=== PATIENT | female | born 1945 | race Caucasian/White ===

== ENCOUNTER 2025-04-29 15:24 | Emergency (ER) | payer OTHER, SELFPAY ==
--- OUTSIDE RECORDS SUMMARY | 2025-04-05 12:00 | XMS_ITS | Encounter Summary ---
Author Organization [facility] Healthcare Address [address] [place] [address] Care Team Providers Care Emergency Medicine Physician Name Role Phone Emily Blair MD Primary Care Provider + [phone] Billy Ward MD Unavailable [phone] Hugo Chavez OD Unavailable Sahil Yuan MD Unavailable [phone] Vivi Chaidez MD Unavailable Edgard Ray MD Unavailable [phone] Osito Garcia MD Unavailable [phone] Aye Bond MD Unavailable Reason for Visit * Reason Comments Annual Exam Encounter Details Date Type Department Care Team (Late st Contact Info) Description 04/05/2025 1:00 PM CDT Office Visit [facility] [address] [place] [address] Emily Blair MD [address] [id number] Annual physical exam (Primary Dx); Class 1 obesity with alveolar hypoventilation, serious comorbidity, and body mass index (BMI) of 33.0 to 33.9 in adult (HCC); Obstructive sleep apnea syndrome; Type 2 diabetes mellitus with hyperlipidemia (HCC); Benign hypertension; Multiple-type hyperlipidemia; Sick sinus syndrome (HCC); Iron deficiency anemia due to chronic blood loss; Chronic GERD; GAVE (gastric antral vascular ectasia); Mixed obsessional thoughts and acts; Dry mouth; Vitamin D deficiency; Immunization counseling; Hyponatremia Social History Tobacco Use Types Packs/Day Years Used Date Smoking Tobacco: Never Smokeless Tobacco: Never Alcohol Use Standard Drinks/Week Comments Yes 0 (1 standard drink = 0.6 oz pur e alcohol) PHQ-2 Answer Date Recorded PHQ-2 Total Score (If total score is 3 or more points, staff should administer the PHQ-9) 0 04/05/2025 AUDIT-C Answer Date Recorded Q1: How often do you have a drink containing alc ohol? Monthly or less 04/05/2025 Q2: How many drinks containi ng alcohol do you have on a typical day when you are drinking? 1 or 2 04/05/2025 Q3: How often do you have si x or more drinks on one occasion? Never 04/05/2025 Personal Safety Answer Date Recorded Have you ever been in or are you currently in a harmful physical or emotional relationship or is someone making you feel afraid or unsafe? Denies 06/09/2024 Comments No Sex and Gender Information Value Date Recorded Sex Assigned at Not on file Legal Sex Female 11:46 AM [employer] Gender Identity Not on file Sexual Orientation Not on file Occupation Industry Job Start Date Job End Date retired Not on file Not on file Not on file documented as of this encounter Last Filed Vital Signs Vital Sign Reading Time Taken Comments Blood Pressure 122/58 04/05/2025 1:08 PM CDT Pulse 63 04/05/2025 1:08 PM CDT Temperature 36.4 C (97.5 F) 04/05/2025 1:08 PM CDT Respiratory Rate 16 04/05/2025 1:08 PM CDT Oxygen Saturation 98% 04/05/2025 1:08 PM CDT Inhaled Oxygen Concentration - - Weight 84.3 kg (185 lb 12.8 oz) 04/05/2025 1:08 PM CDT Height 157.5 cm (5' 2) 04/05/2025 1:08 PM CDT Body Mass Index 33.98 04/05/2025 1:08 PM CDT documented in this encounter Functional Status * Question Answer Date of Assessment Author One or more falls in the las t year 0 04/05/2025 1:00 PM CDT Jimena Rodriguez MA * BP Location Answer Date of Assessment Author Left arm 04/05/2025 1:08 PM CDT Jimena Rodriguez MA * AUDIT-C Score Answer Date of Assessment Author 1 04/05/2025 1:44 PM CDT Emily Blair MD * Alcohol Use Question Answer Date of Assessment Author Q1: How often do you have a drink containing alcohol? Monthly or less 04/05/2025 1:44 PM CDT Emily Blair MD Q2: How many drinks containing alcohol do you have on a typical day when you are drinking? 1 or 2 04/05/2025 1:44 PM CDT Raymond Blair MD Q3: How often do you have six or more drinks on one occasion? Never 04/05/2025 1:44 PM CDT Emily Blair MD * BP Location Answer Date of Assessment Author Left arm 04/05/2025 1:08 PM CDT Jimena Rodriguez MA documented as of this encounter Patient Instructions * Patient Instructions* Emily Blair MD - 04/05/2025 1:00 PM CDT ORDERS RELATED TO CARE PROVIDED TODAY 1. Labs after April 22 = basic panel, urine sodium = hyponatremia, medication monitor , vitamin-D level = vitamin-D deficiency 2. Diabetic labs with a fasting lipid panel not LDL = diabetes, for the six- month follow up CBC and iron profile = chronic blood loss anemia for the six-month follow up Return in about 6 months (around 10/04/2025) for Recheck. Lifestyle Recommendations Increase Physical Activity, Reduce Weight, and Improve Diet Medication adjustments: Decrease the triamterene HCTZ to [id number] dosing because the sodium in his little low Returned to the office in 2 weeks to update labs to check on this sodium with a medication change Care Team Providers: Contact my office with updates if you do not find 1 of your providers on this list Patient Care Team: Emily Blair MD as PCP - General BannerBilly MD as Surgeon (Orthopedic Surgery) Hugo Chavez OD (Optometry) Sahil Yuan MD as Consulting Physician (Urology) Vivi Chaidez MD as Consulting Physician (Rheumatology) Edgard Ray MD as Referring Physician (Obstetrics and Gynecology) Osito Garcia MD as Consulting Physician (Gastroenterology) Aye Bond MD as Consulting Physician (Sleep Medicine) Cut this here to put in the refrigerator Cynthia Santiago Blanca IMMUNIZATION RECOMMENDATIONS COVID vaccination recommended every january before the kids go back to school Cynthia Santiago Blanca immunization record as of 04/05/25 Immunization History Administered Date(s) Administered Influenza, Quadrivalent, High Dose, Preservative Free, Intrr 04/26/2020, 05/08/2021, 04/08/2022, 03/27/2023 Influenza, Quadrivalent, Split, Intramuscular 03/26/2019 Influenza, Trivalent, High Dose, Split, Preservative Free, Intramuscular 04/09/2015, 04/08/2016, 04/23/2017, 04/07/2018, 03/26/2019, 04/06/2024, 04/05/2025 Influenza, Trivalent, IM (MDV) 2015 Influenza, Unspecified 04/08/2016 Moderna SARS-CoV-2 Monovalent Vaccination (12+ YRS) 08/02/2020, 09/10/2020, 04/26/2021 Pneumococcal Conjugate PCV 13 05/22/2015 Pneumococcal Conjugate Pcv20 03/27/2023 Pneumococcal Polysaccharide PPV23 03/11/2013 RSV Vaccine, Pref, Recombinant, Subunit, Adjuvanted, PF, IM (Arexvy) 08/11/2023 Tdap 05/21/2011, 06/22/2016 ZOSTER LIVE 11/19/2007 ZOSTER Recombinant 09/22/2018, 02/08/2019 ----------------------------> To keep up with emerging viruses and COVID science evidence I recommend the podcast TWIV episodes posted every Thursday are with Dr. Delfino Desai and talk about emerging virus science PLANNING FOR possible INFLUENZA INFECTION or COVID INFECTION In advance of illness I recommended Purchase COMBINATION COVID plus INFLUENZA TEST KIT for day # 1 testing AND Purchase COVID TEST KIT for day # 4 testing. Be certain that you have been immunized, full immunization for COVID = 3 total COVID shots Testing and evaluation for COVID if you get a cold = runny nose plus sore throat could be COVID -day 0 = Onset of symptoms = sore throat, runny nose, cough -day 1. = perform a Nasal COVID and influenza test on the morning of day 1 and if POSITIVE call theoffice for medication- [ available ] -if negative test again in 48 hours= on day 4 -day 2. And 3 No testing is done on day 2 or 3 -day 4 = perform a Nasal COVID test on morning of day 4 and if POSITIVE call the office for medication- [ available ] , if negative no further testing as needed. there are medication treatments for COVID Paxlovid is the highly effective antiviral used to treat COVID most patients can use this medicine. If you have chronic kidney disease there are limited options for treatment. We would plan remdesivir infusion daily for 3 days or less effective MOLNUPIRAVIR 800 MG BID X 5D pills should you become ill with COVID-19. This will require transportation to [facility] daily for 3 days to complete your course ofcare PLANNING FOR possible INFLUENZA INFECTIONS Take your yearly flu shot in March, [ We take the flu shot to prevent dying from Influenza = the flu. ] Influenza causes fever and muscle aches. If you have these symptoms you will need to go to the Office or a quick care clinic for testing Antiviral therapy = Tamiflu= is available but needs to be started within the 1st 24-72 hours of symptoms. Please be evaluated immediately if you have these symptoms. For further INTERNET RESEARCH on your MEDICAL CONCERNS: I recommend = [email or web address],NIH.[email or web address] = the [employer] library of medicine online This is a consistently reliable site for your personal medical research. documented in this encounter Ordered Prescriptions Prescription Sig Dispense Quantity Refills Last Filled Start Date End Date triamterene-hydroCHL OROthiazide 37.5-25 mg per tablet/capsuleIndica tions:Benign hypertension Take 1 tablet/capsule by mouth every other day 45 tablet/capsul e 3 04/05/2025 tirzepatide (MOUNJARO) 2.5 mg/0.5 mL pen injector injectionIndications :Type 2 diabetes mellitus with hyperlipidemia (HCC) Inject 0.5 mL (2.5 mg total) under the skin once a week 6 mL 2 04/05/2025 sertraline (ZOLOFT) 100 mg tabletIndications:Mi xed obsessional thoughts and acts Take 1 tablet (100 mg total) by mouth nightly 90 tablet 3 04/05/2025 rosuvastatin (CRESTOR) 20 mg tabletIndications:Mu ltiple-type hyperlipidemia Take 1 tablet (20 mg total) by mouth nightly 90 tablet 3 04/05/2025 omeprazole (PriLOSEC) 20 mg capsuleIndications:G I Bleed Take 1 capsule (20 mg total) by mouth daily before breakfast 90 capsule 3 04/05/2025 metoprolol XL (TOPROL-XL) 50 mg extended release tabletIndications:Si ck sinus syndrome (HCC),Benign hypertension Take 1 tablet (50 mg total) by mouth daily before breakfast 90 tablet 3 04/05/2025 documented in this encounter Progress Notes * Emily Blair MD - 04/05/2025 1:00 PM CDT Images from the original note were not included. This patient has verbally consented to recording this visit in order to utilize AI technology in generating this note. Cynthia Blanca is a 80 y.o. year old White Non- female here an for Annual Wellness Visit. History of Present Illness Cynthia Blanca is a 80 year old female with type 2 diabetes and hypertension who presents for a routine follow-up visit. Physical activity and exercise - Difficulty incorporating regular exercise into routine despite having a recumbent bicycle at home - Remains active through walking and shopping but lacks structured exercise - Considering relocating the bicycle to a more accessible location to facilitate regular use Hyponatremia and electrolyte disturbance - History of hyponatremia with sodium level of 131 mEq/L - Potential association with triamterene and hydrochlorothiazide use - Concern about sodium levels and possible kidney involvement due to history of Sjogren's syndrome Sicca symptoms - Experiences dry mouth and dry eyes - Attributes symptoms to aging rather than Sjogren's syndrome - Recent tests do not show significant antibody presence Gastrointestinal bleeding and anemia - 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 - Currently taking metronidazole, purchased over the counter due to insurance issues - Takes iron daily, contrary to previous recommendation of three times a week, as she feels better with daily intake - Takes vitamin C to aid iron absorption Vitamin d and calcium supplementation - Takes vitamin D 50,000 IU weekly - Concerned about vitamin D levels in relation to calcium levels Diverticular disease and colorectal cancer screening - History of diverticular disease - Previous colonoscopy and endoscopy performed - No family history of colon cancer - No history of polyps Obsessive-compulsive disorder - Takes sertraline (Zoloft) for obsessive-compulsive disorder - Significant improvement in symptoms over the years Vaccination status - Received shingles, tetanus, RSV, and influenza vaccinations - Hesitant about further COVID-19 vaccinations Pruritus and vaginal dryness - History of itching and dryness - Uses estrogen cream occasionally for symptoms Urinary tract and yeast infections - History of bladder infection, prescribed Diflucan and an antibiotic (uncertain if antibiotic was taken) - Uses cream for yeast infections as needed Substance use and sexual activity - Not currently smoking, using nicotine vape, cocaine, amphetamines, or marijuana - Not sexually active - Consumes alcohol socially, but infrequently due to stomach concerns Medicare Health Risk Assessment Basic Information In general, would you say your health is: Good Do you have an advance directive, such as a living will or durable power of regulatory attorney?: Yes Do you have to strain or struggle to hear/understand conversations?: (!) Yes Over the last 2 weeks, how often have you been bothered by any of the following problems? Little Interest or Pleasure in Doing Things: 0-Not at all Feeling Down, Depressed, or Hopeless: 0-Not at all PHQ-2 Total Score (If total score is 3 or more points, staff should administer the PHQ-9): 0 In the past year, patient experienced: One or more falls in the last year: No Do you feel unsteady when standing or walking?: No Do you worry about falling?: No Safety Do you have a working smoke detector in your home?: Yes Does your home have throw rugs, poor lighting, or a slippery bath tub/shower?: (!) Yes Do you always fasten your seatbelt when you are in a vehicle?: Yes What is your typical mode of transportation: Car Physical Activity How many days a week do you usually exercise?: 0 - I do not exercise How intense is your typical exercise?: I am currently not exercising Nutrition How would you rate your appetite?: Good How would you describe the condition of your mouth and teeth/dentures?: Good On a typical day, how many servings of fruits and vegetables do you eat?: 3 On a typical day, how many servings of high fiber/whole-grain foods do you eat?: 3 On a typical day, how many servings of high fat/fried foods do you eat?: 0 Have you experienced any of the following problems currently or recently? Eating: No Grooming: No Bathing: No Walking: No Using the toilet: No Memory problems: No Difficulty speaking: No Dressing: No Balance: No Pain: No Sexual Health: No Fatigue: No Depression: No Life Satisfaction: No Stress: No Anger: No Loneliness or Social Isolation: No Suicide: No Have you experienced any of the following problems currently or recently? Laundry and/or housekeeping: No Handling money: No Shopping: No Using the Phone: No Food preparation: No Transportation: No Taking and/or getting your own medications: No Do you use prescription drugs that are not prescribed for you?: No Based on my observation of the patient, review of Health Risk Assessment (HRA) and other records, this is my assessment and recommendation regarding fall risk, hearing impairment, home safety, ADLs, or any other issues identified in the HRA: No concerns expressed Problem List, Past Medical and Surgical History: Patient Active Problem List Diagnosis Genital herpes simplex Obstructive sleep apnea syndrome Obsessive-compulsive disorder Chronic GERD Multiple-type hyperlipidemia Class 1 obesity with serious comorbidity and body mass index (BMI) of 33.0 to 33.9 in adult History of total hip arthroplasty, right Irritable bowel syndrome with constipation Osteopenia, senile Atypical squamous cells of undetermined significance on cytologic smear of cervix (ASC-US) Iron deficiency anemia due to chronic blood loss GAVE (gastric antral vascular ectasia) Benign hypertension Sick sinus syndrome (HCC) Atherosclerosis of aorta Elevated antinuclear antibody (JANNIE) level 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, without long-term current use of insulin Sjogren's syndrome Past Medical History: Diagnosis Date Abnormal Pap smear of cervix 1992 atypical endocervical cells Anxiety and depression Chest wall pain Diverticulosis Dizziness Genital herpes GERD (gastroesophageal reflux disease) 2 para 2 History of Randolph's palsy 2014 Hyperlipemia Hyperlipidemia Hypertension Menopause Mitral valve prolapse OCD (obsessive compulsive disorder) OCD (obsessive compulsive disorder) CHRIS (obstructive sleep apnea) Osteoarthritis Osteoporosis Prediabetes 11/05/2013 Fasting hyperglycemia Sarcoidosis Past Surgical History: Procedure Laterality Date BIOPSY 1972 vocal cord nodule CARPAL TUNNEL RELEASE 2002 and trigger thumb CERVICAL CONE BIOPSY 1992 atypical endocervical cells: benign pathology CHOLECYSTECTOMY 2006 COLONOSCOPY 01/09/2015 Dr. Mcclendon at [facility] [place] (-) diverticulosis found COLONOSCOPY 2014 COLONOSCOPY 12/26/2020 (-) Dr. Castaneda, only diverticulosis found DUPUYTREN CONTRACTURE RELEASE 2004 ESOPHAGOSCOPY / EGD 08/02/2007 On (-) Dr. Beth ESOPHAGOSCOPY / EGD 12/26/2020 (+) Dr. Csataneda, angiodysplasia of the stomach no active bleeding ESOPHAGOSCOPY / EGD 05/22/2021 (+) Dr. 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 Garcia angiodysplasia stomach treated with argon laser FL FLUORO GUIDED INJECTION HIP LEFT Left 06/08/2017 FL FLUORO GUIDED INJECTION HIP LEFT Left 11/18/2017 FL FLUORO GUIDED INJECTION HIP LEFT Left 03/05/2018 FL FLUORO GUIDED INJECTION HIP LEFT Left 09/08/2018 JOINT REPLACEMENT KNEE ARTHROSCOPY Bilateral TOTAL HIP ARTHROPLASTY 2016 TOTAL HIP ARTHROPLASTY Left 12/15/2018 Family History: Family History Problem Relation Age of Onset Skin cancer Mother Hypertension Mother Heart failure Mother COD at age 96 COPD Mother Diabetes Maternal Grandmother Stroke Maternal Grandmother Diabetes Paternal Grandmother Stomach cancer Mother's Sister Diabetes Father Heart attack Father COD at age 45 Diabetes Brother Kidney failure Brother COD Heart attack Brother Skin cancer Son Social History: Social History Tobacco Use Smoking status: Never Smokeless tobacco: Never Substance and Sexual Activity Drug use: No Sexual activity: Not Currently Partners: Male control/protection: Post-menopausal Alcohol Use: Not At Risk (04/05/2025) AUDIT-C Frequency of Alcohol Consumption: Monthly or less Average Number of Drinks: 1 or 2 Frequency of Binge Drinking: Never Depression Screen: PHQ Screening Over the past 2 weeks, how often have you been bothered by any of the following problems? Little Interest or Pleasure in Doing Things: 0-Not at all Feeling Down, Depressed, or Hopeless: 0-Not at all PHQ-2 Total Score (If total score is 3 or more points, staff should administer the PHQ-9): 0 Care Team Providers: Patient Care Team: Emily Blair MD as PCP - General BannerBilly MD as Surgeon (Orthopedic Surgery) Hugo Chavez OD (Optometry) Sahil Yuan MD as Consulting Physician (Urology) Vivi Chaidez MD as Consulting Physician (Rheumatology) Edgard Ray MD as Referring Physician (Obstetrics and Gynecology) Osito Garcia MD as Consulting Physician (Gastroenterology) Aye Bond MD as Consulting Physician (Sleep Medicine) Primary Pharmacy/DME suppliers: [facility] [id number] [place] [id number] I reviewed the patient???s home and community safety, including driving, and made the following recommendations no concerns no need for restrictions. Detection of Cognitive Impairment: The patient does not have cognitive impairment based on direct observation, discussion with patientor family, or review of medical records. Health Maintenance: Health Maintenance Topics with due status: Overdue Topic Date Due Dilated Eye Exam Never done Covid-19 Vaccine 02/20/2025 Health Maintenance Topics with due status: Not Due Topic Last Completion Date DTaP/Tdap/Td Vaccine 06/22/2016 Lipid Panel 08/11/2024 Foot Exam 08/16/2024 Osteoporosis Screening-Bone Density Scan 10/19/2024 Albumin Creatinine Ratio, Urine 03/30/2025 Hemoglobin A1C 03/30/2025 eGFR 03/30/2025 Fall Risk Assessment 04/05/2025 Depression Screening 04/05/2025 Well Visit 65+ 04/05/2025 Health Maintenance Topics with due status: Completed Topic Last Completion Date Hepatitis C Screening 02/01/2019 Zoster Vaccine 02/08/2019 Pneumococcal vaccine 65+ 03/27/2023 Hepatitis B Screening 02/18/2024 Influenza Vaccine 04/05/2025 Health Maintenance Topics with due status: Discontinued Topic Date Due Colorectal Cancer Screening Discontinued Breast Cancer Screening-Mammogram Discontinued Counseling and Referral of Preventative Services: Lifestyle Recommendations outlined on the after visit summary Advanced Directive Durable Power of Field Observer: Yes Living Will: Undo Assessment and Plan: Counseling and Referrals to Preventative Services: Based on the USPSTF Recommendations HEALTH MAINTENANCE: Health Maintenance Topics with due status: Overdue Topic Date Due Dilated Eye Exam Never done Covid-19 Vaccine 02/20/2025 Health Maintenance Topics with due status: Not Due Topic Last Completion Date DTaP/Tdap/Td Vaccine 06/22/2016 Lipid Panel 08/11/2024 Foot Exam 08/16/2024 Osteoporosis Screening-Bone Density Scan 10/19/2024 Albumin Creatinine Ratio, Urine 03/30/2025 Hemoglobin A1C 03/30/2025 eGFR 03/30/2025 Fall Risk Assessment 04/05/2025 Depression Screening 04/05/2025 Well Visit 65+ 04/05/2025 Health Maintenance Topics with due status: Completed Topic Last Completion Date Hepatitis C Screening 02/01/2019 Zoster Vaccine 02/08/2019 Pneumococcal vaccine 65+ 03/27/2023 Hepatitis B Screening 02/18/2024 Influenza Vaccine 04/05/2025 Health Maintenance Topics with due status: Discontinued Topic Date Due Colorectal Cancer Screening Discontinued Breast Cancer Screening-Mammogram Discontinued COLON CANCER SCREENING due next last testing = [address] Castaneda next testing due = complete EYE DOCTOR : Current eye doctor is Dr. jayla yeh, I recommend follow up visits every visitingyearly for dilated eye exam for diabetes DENTIST : Current dentist is Dr. Yo, I recommend a follow up visit every six-month minimum for cleaning every six-month. Scheduled next week and attends every six-month MAMMOGRAM was last done 04/05/2025, next mammogram is due RESULT IS PENDING WE WILL DECIDE AFTER THE RESULTS DEXA was last done October 19, 2024 you did already of the mammogram that you just have today, next DEXA is due October 20, 2026 Hepatitis-B screening (-) date = Hepatitis B Screening 02/18/2024 Hepatitis screening is completed Hepatitis-C screening (-) date = Hepatitis C Screening 02/01/2019 IMMUNIZATION RECOMMENDATIONS COVID vaccination recommended every january before the kids go back to school Immunization History Administered Date(s) Administered Influenza, Quadrivalent, High Dose, Preservative Free, Intrr 04/26/2020, 05/08/2021, 04/08/2022, 03/27/2023 Influenza, Quadrivalent, Split, Intramuscular 03/26/2019 Influenza, Trivalent, High Dose, Split, Preservative Free, Intramuscular 04/09/2015, 04/08/2016, 04/23/2017, 04/07/2018, 03/26/2019, 04/06/2024, 04/05/2025 Influenza, Trivalent, IM (MDV) 2015 Influenza, Unspecified 04/08/2016 Moderna SARS-CoV-2 Monovalent Vaccination (12+ YRS) 08/02/2020, 09/10/2020, 04/26/2021 Pneumococcal Conjugate PCV 13 05/22/2015 Pneumococcal Conjugate Pcv20 03/27/2023 Pneumococcal Polysaccharide PPV23 03/11/2013 RSV Vaccine, Pref, Recombinant, Subunit, Adjuvanted, PF, IM (Arexvy) 08/11/2023 Tdap 05/21/2011, 06/22/2016 ZOSTER LIVE 11/19/2007 ZOSTER Recombinant 09/22/2018, 02/08/2019 DIAGNOSTIC TESTING RESULTS Results LABS Sodium: 131 mEq/L Calcium: within normal limits RADIOLOGY DEXA: Lumbar spine and forearm evaluated; low bone density noted (10/19/2024) Component Ref Range & Units 1 yr ago 4 yr ago Anti-LISBET, SS-A <=0.9 Ab Index <0.2 <1.0 NEGR Lab on 03/30/2025 Component Date Value Erythrocyte sedimentatio* 03/30/2025 9 CRP 03/30/2025 4.7 Complement C4 03/30/2025 21 Complement C3 03/30/2025 138 dsDNA Ab 03/30/2025 <1.0 Sodium 03/30/2025 131 (L) Potassium, pl 03/30/2025 4.2 Chloride 03/30/2025 92 (L) CO2 03/30/2025 25 Anion gap 03/30/2025 14 BUN 03/30/2025 20 Creatinine 03/30/2025 0.96 Glucose 03/30/2025 88 Calcium 03/30/2025 9.5 Bilirubin, total 03/30/2025 0.5 Protein, pl 03/30/2025 7.3 Albumin 03/30/2025 4.0 Alk phos 03/30/2025 114 ALT 03/30/2025 28 AST 03/30/2025 44 eGFR 03/30/2025 61 Lab on 03/30/2025 Component Date Value WBC 03/30/2025 5.86 Hgb 03/30/2025 13.1 Hct 03/30/2025 40.9 Plt 03/30/2025 303 MPV 03/30/2025 9.9 RBC 03/30/2025 4.62 MCV 03/30/2025 88.5 MCH 03/30/2025 28.4 MCHC 03/30/2025 32.0 (L) RDW CV 03/30/2025 13.5 RDW SD 03/30/2025 43.7 NRBC abs 03/30/2025 0.00 Iron 03/30/2025 61 TIBC 03/30/2025 299 Transferrin saturation 03/30/2025 20 LDL Cholesterol, Direct 03/30/2025 60 Hgb A1C 03/30/2025 5.2 Estimated Average Glucose 03/30/2025 103 Sodium 03/30/2025 131 (L) Potassium, pl 03/30/2025 4.3 Chloride 03/30/2025 92 (L) CO2 03/30/2025 26 Anion gap 03/30/2025 13 BUN 03/30/2025 20 Creatinine 03/30/2025 0.97 Glucose 03/30/2025 88 Calcium 03/30/2025 9.5 Bilirubin, total 03/30/2025 0.5 Protein, pl 03/30/2025 7.1 Albumin 03/30/2025 4.0 Alk phos 03/30/2025 113 ALT 03/30/2025 28 AST 03/30/2025 38 Albumin Ur 03/30/2025 49.9 Creatinine Ur 03/30/2025 172.8 Albumin Creatinine Ratio* 03/30/2025 29 Neutrophil abs 03/30/2025 4.37 Imm gran abs 03/30/2025 0.02 Lymphocyte abs 03/30/2025 0.74 (L) Monocyte abs 03/30/2025 0.56 Eosinophil abs 03/30/2025 0.12 Basophil abs 03/30/2025 0.05 Neutrophil pct 03/30/2025 74.6 Imm gran pct 03/30/2025 0.3 Lymphocyte pct 03/30/2025 12.6 Monocyte pct 03/30/2025 9.6 Eosinophil pct 03/30/2025 2.0 Basophil pct 03/30/2025 0.9 eGFR 03/30/2025 60 Lab on 10/26/2024 Component Date Value PTH 10/26/2024 55 Vitamin D 25-OH 10/26/2024 23 (L) MEDICATIONS at conclusion of this visit: Current Outpatient Medications Medication Instructions amoxicillin 500 mg tablet/capsule TAKE 4 CAPSULES BY MOUTH ONE HOUR BEFORE DENTAL PROCEDURE ascorbic acid (Vitamin C) 500 mg tablet,chewable 1 tablet/chew tab, Daily blood glucose diagnostic (glucose blood) strip Use to check blood sugar daily. ferrous sulfate 325 mg, oral, 3 times weekly, Take with vitamin-C 250 mg at each dose fluconazole (DIFLUCAN) 150 mg tablet TAKE ONE TAB BY MOUTH ON DAYS 1, 3, AND 7 hydroxychloroquine (PLAQUENIL) 200 mg, Daily Lacto no.76/Bifido/FOS/larch (WOMEN'S PROBIOTIC ORAL) 1 tablet, Daily lancets misc 1 each, other, See admin instructions, Use to check glucose daily. metoprolol XL (TOPROL-XL) 50 mg, oral, Daily before breakfast nitrofurantoin monohydrate (MACROBID) 100 mg capsule 100 mg, 2 times daily omeprazole (PRILOSEC) 20 mg, oral, Daily before breakfast rosuvastatin (CRESTOR) 20 mg, oral, Nightly sertraline (ZOLOFT) 100 mg, oral, Nightly tirzepatide (MOUNJARO) 2.5 mg, subcutaneous, Weekly triamterene-hydroCHLOROthiazide 37.5-25 mg per tablet/capsule 1 tablet/capsule, oral, Every other day ALLERGIES Allergies Allergen Reactions Carvedilol Other (See comments) Raised blood pressure Latex Rash, Blisters and Hives Phentermine-Topiramate Unknown Chlorthalidone Unknown Dulaglutide Unknown Propoxyphene-Acetaminophen Unknown Celebrex [Celecoxib] Other (See comments) hypertension Cephalexin Nausea & Vomiting Propoxyphene Dizziness Semaglutide Diarrhea PLAN : ORDERS TO BE REVIEWED WITH her AT FOLLOW-UP VISIT: Return in about 6 months (around 10/04/2025) for Recheck. Orders successfully placed before signing the note: Orders Placed This Encounter Procedures Flu Vaccine High Dose Tri PF 65y+ IM - Fluzone High Dose () Basic metabolic panel Vitamin D 25 hydroxy Sodium, urine, random Lipid panel Hemoglobin A1c Comprehensive metabolic panel Albumin Creatinine Ratio, Urine CBC with auto differential Iron level --if blank these can be accessed by ???rounding up?? the note BP 122/58 (BP Location: Left arm, Patient Position: Sitting) Pulse 63 Temp 36.4 ??C (97.5 ??F) (Temporal) Resp 16 Ht 157.5 cm (5' 2) Wt 84.3 kg (185 lb 12.8 oz) LMP (LMP Unknown) SpO2 98% BMI 33.98 kg/m?? Body mass index is 33.98 kg/m??. Wt Readings from Last 3 Encounters: 04/05/25 84.3 kg (185 lb 12.8 oz) 04/05/25 83.8 kg (184 lb 11.9 oz) 10/31/24 83.8 kg (184 lb 12.8 oz) BP Readings from Last 3 Encounters: 04/05/25 122/58 10/31/24 124/60 10/18/24 126/72 Pulse Readings from Last 3 Encounters: 04/05/25 63 10/31/24 70 10/18/24 65 Physical Exam Vitals and nursing note reviewed. Constitutional: General: She is not in acute distress. Appearance: Normal appearance. She is well-developed. She is obese. She is not ill-appearing. Comments: BMI notably down a couple of lb every year no significant body composition change with noregular exercise HENT: Head: Normocephalic and atraumatic. Right Ear: Tympanic membrane, ear canal and external ear normal. Left Ear: Tympanic membrane, ear canal and external ear normal. Nose: Nose normal. No congestion or rhinorrhea. Mouth/Throat: Mouth: Mucous membranes are moist. Pharynx: Oropharynx is clear. No oropharyngeal exudate or posterior oropharyngeal erythema. Eyes: General: No scleral icterus. Extraocular Movements: Extraocular movements intact. Conjunctiva/sclera: Conjunctivae normal. Pupils: Pupils are equal, round, and reactive to light. Neck: Thyroid: No thyromegaly. Cardiovascular: Rate and Rhythm: Normal rate and regular rhythm. Pulses: Normal pulses. Heart sounds: Normal heart sounds. No murmur heard. No gallop. Pulmonary: Effort: Pulmonary effort is normal. Breath sounds: Normal breath sounds. No wheezing, rhonchi or rales. Abdominal: General: Bowel sounds are normal. There is no distension. Palpations: Abdomen is soft. There is no mass. Tenderness: There is no abdominal tenderness. There is no guarding or rebound. Hernia: No hernia is present. Genitourinary: Comments: Genitourinary examination excluded Musculoskeletal: General: No swelling, tenderness, deformity or signs of injury. Normal range of motion. Cervical back: Neck supple. Right lower leg: No edema. Left lower leg: No edema. Feet: Right Foot: Monofilament exam: normal. Protective Sensation: 4 sites tested. 4 sites sensed. Left Foot: Protective Sensation: 4 sites tested. 4 sites sensed. Lymphadenopathy: Cervical: No cervical adenopathy. Skin: General: Skin is warm and dry. Coloration: Skin is not jaundiced. Findings: No bruising, erythema, lesion or rash. Neurological: General: No focal deficit present. Mental Status: She is alert and oriented to person, place, and time. Mental status is at baseline. Cranial Nerves: No cranial nerve deficit. Sensory: No sensory deficit. Motor: No weakness or abnormal muscle tone. Coordination: Coordination normal. Gait: Gait normal. Deep Tendon Reflexes: Reflexes are normal and symmetric. Reflexes normal. Psychiatric: Mood and Affect: Mood normal. Behavior: Behavior normal. Thought Content: Thought content normal. Judgment: Judgment normal. Cynthia Blanca FALL RISK ASSESSMENT WITH THE GET UP AND GO TEST FALL RISK = 1 (1) No fall risk Well-coordinated movements, without walking aid (2) Low fall risk Controlled, but adjusted movements (3) Some fall risk Uncoordinated movements (4) High fall risk Supervision necessary (5) Very high fall risk Physical support of stand by physical support necessary ====[FYI to the reader] HOW THE TESTING IS DONE AND INTERPRETED ==== Have the patient sit in a straight-backed high-seat chair Instructions I give my patient: Get up (without use of armrests, if possible) Stand still momentarily Walk forward 10 feet (3 meters) Turn around and walk back to chair Turn and be seated Factors I consider: Sitting balance Transfers from sitting to standing Pace and stability of walking Ability to turn without staggering Timed test reference values (record time from initial rising to re-seating) Age (years) Mean time in seconds (95% CI) 60 to 69 8.1 (7.1 to 9.0) 70 to 79 9.2 (8.2 to 10.2) 80 to 99 11.3 (10.0 to 12.7) DIAGNOSTIC TESTING RESULTS Results Lab on 03/30/2025 Component Date Value Erythrocyte sedimentatio* 03/30/2025 9 CRP 03/30/2025 4.7 Complement C4 03/30/2025 21 Complement C3 03/30/2025 138 dsDNA Ab 03/30/2025 <1.0 Sodium 03/30/2025 131 (L) Potassium, pl 03/30/2025 4.2 Chloride 03/30/2025 92 (L) CO2 03/30/2025 25 Anion gap 03/30/2025 14 BUN 03/30/2025 20 Creatinine 03/30/2025 0.96 Glucose 03/30/2025 88 Calcium 03/30/2025 9.5 Bilirubin, total 03/30/2025 0.5 Protein, pl 03/30/2025 7.3 Albumin 03/30/2025 4.0 Alk phos 03/30/2025 114 ALT 03/30/2025 28 AST 03/30/2025 44 eGFR 03/30/2025 61 Lab on 03/30/2025 Component Date Value WBC 03/30/2025 5.86 Hgb 03/30/2025 13.1 Hct 03/30/2025 40.9 Plt 03/30/2025 303 MPV 03/30/2025 9.9 RBC 03/30/2025 4.62 MCV 03/30/2025 88.5 MCH 03/30/2025 28.4 MCHC 03/30/2025 32.0 (L) RDW CV 03/30/2025 13.5 RDW SD 03/30/2025 43.7 NRBC abs 03/30/2025 0.00 Iron 03/30/2025 61 TIBC 03/30/2025 299 Transferrin saturation 03/30/2025 20 LDL Cholesterol, Direct 03/30/2025 60 Hgb A1C 03/30/2025 5.2 Estimated Average Glucose 03/30/2025 103 Sodium 03/30/2025 131 (L) Potassium, pl 03/30/2025 4.3 Chloride 03/30/2025 92 (L) CO2 03/30/2025 26 Anion gap 03/30/2025 13 BUN 03/30/2025 20 Creatinine 03/30/2025 0.97 Glucose 03/30/2025 88 Calcium 03/30/2025 9.5 Bilirubin, total 03/30/2025 0.5 Protein, pl 03/30/2025 7.1 Albumin 03/30/2025 4.0 Alk phos 03/30/2025 113 ALT 03/30/2025 28 AST 03/30/2025 38 Albumin Ur 03/30/2025 49.9 Creatinine Ur 03/30/2025 172.8 Albumin Creatinine Ratio* 03/30/2025 29 Neutrophil abs 03/30/2025 4.37 Imm gran abs 03/30/2025 0.02 Lymphocyte abs 03/30/2025 0.74 (L) Monocyte abs 03/30/2025 0.56 Eosinophil abs 03/30/2025 0.12 Basophil abs 03/30/2025 0.05 Neutrophil pct 03/30/2025 74.6 Imm gran pct 03/30/2025 0.3 Lymphocyte pct 03/30/2025 12.6 Monocyte pct 03/30/2025 9.6 Eosinophil pct 03/30/2025 2.0 Basophil pct 03/30/2025 0.9 eGFR 03/30/2025 60 Lab on 10/26/2024 Component Date Value PTH 10/26/2024 55 Vitamin D 25-OH 10/26/2024 23 (L) Lab Frequency Next Occurrence Ambulatory referral to Optometry Once 08/16/2024 Screening Mammogram Bilateral W [place] Once 03/02/2025 DIFFERENTIAL DIAGNOSIS, ADDITIONAL DISCUSSION and ORDERS HPI Assessment & Plan Annual physical exam The specifics of annual preventive counseling using the USPSTF guidelines are outlined on the AVS with goal directed recommendations for preventive services . For patient motivation, similar reports from last year ar compared to data from today. Class 1 obesity with alveolar hypoventilation, serious comorbidity, and body mass index (BMI) of 33.0 to 33.9 in adult (HCC) Chronic persistent without significant change in lifestyle habits which are necessary in order to correct this problem agreed to start using her recumbent bike working her way up to 30 minutes daily Obstructive sleep apnea syndrome Following with Dr. Bond: Recent CPAP changes ???Ok to send order for new APAP at 10-12 cm of water and f/u within 90 days. ?? Type 2 diabetes mellitus with hyperlipidemia (HCC) Chronic well-controlled with low-dose Mounjaro. Advise that she remain off of insulin medications. Encouraged lifestyle interventions with proper diet exercise none of what She is doing at this time.Rechecked diabetic labs in six-month Orders: tirzepatide (MOUNJARO) 2.5 mg/0.5 mL pen injector injection; Inject 0.5 mL (2.5 mg total) under theskin once a week Lipid panel; Future Hemoglobin A1c; Future Comprehensive metabolic panel; Future Albumin Creatinine Ratio, Urine; Future CBC with auto differential; Future Iron level; Future Benign hypertension Chronic well-controlled. Because that has sodium in his lower going to back the Dyazide to every other day and hope the sodium level comes into normal range and that the blood pressure does not not go up higher. Consider coming off of diuretic Orders: metoprolol XL (TOPROL-XL) 50 mg extended release tablet; Take 1 tablet (50 mg total) by mouth dailybefore breakfast triamterene-hydroCHLOROthiazide 37.5-25 mg per tablet/capsule; Take 1 tablet/capsule by mouth everyother day Multiple-type hyperlipidemia LDL goal less than 70 with the current levels of 60 we will continue on Crestor 20 mg nightly Orders: rosuvastatin (CRESTOR) 20 mg tablet; Take 1 tablet (20 mg total) by mouth nightly Sick sinus syndrome (HCC) Asymptomatic on metoprolol ER 50 no orthostatic hypotension blood pressure in range continue with the prescriptions updated today Orders: metoprolol XL (TOPROL-XL) 50 mg extended release tablet; Take 1 tablet (50 mg total) by mouth dailybefore breakfast Iron deficiency anemia due to chronic blood loss Chronic recurrent problem. CBC iron profile due now and again before six-month follow up. Claims Dr. Garcia with visit are taking iron every day however every other day ensures better absorption and I encouraged decreasing to every other day dosing. Take iron with vitamin-C Orders: Comprehensive metabolic panel; Future Albumin Creatinine Ratio, Urine; Future CBC with auto differential; Future Iron level; Future Chronic GERD Chronic well-controlled informed insurance of her anatomical problems that has the need for prescription Prilosec long-term prescribed by me and recommended long-term by her loss prevention and safety manager Dr. Garcia Orders: omeprazole (PriLOSEC) 20 mg capsule; Take 1 capsule (20 mg total) by mouth daily before breakfast GAVE (gastric antral vascular ectasia) Intermittent bleeding requiring argon laser treatment. Asymptomatic at this time. Following twice yearly blood counts sooner if she has a symptomatic GI bleed Orders: omeprazole (PriLOSEC) 20 mg capsule; Take 1 capsule (20 mg total) by mouth daily before breakfast Mixed obsessional thoughts and acts Chronic improved, never expected to be resolved. Recommend continued long-term Zoloft, tolerates this nightly Orders: sertraline (ZOLOFT) 100 mg tablet; Take 1 tablet (100 mg total) by mouth nightly Dry mouth Question whether this is Sjogren's syndrome or simply age associated dry mouth. All of her serologyfor Sjogren's that has (-) by Dr. Lutz does have her taking Plaquenil for the condition. Suspect She is simply a ???seronegative Sjogren's. This is interesting because her hyponatremia maybe relatedto a Sjogren's tubular defect in the kidney. Labs for serum sodium and urine sodium are ordered to help sort out whether that could be a possibility Vitamin D deficiency Update vitamin-D levels, continue supplementation Orders: Vitamin D 25 hydroxy; Future Immunization counseling Not at goal Vaccine counseling - Influenza and COVID planning: Immunization reviewed with updated recommendations outlined on the AVS along with COVID and influenza planning guidelines Hyponatremia Orders: Basic metabolic panel; Future Sodium, urine, random; Future CAPTURED Real-time DISCUSSION and CARE PLAN Assessment & Plan Adult Wellness Visit Routine wellness visit with emphasis on exercise and lifestyle modifications to improve overall health. - Encourage use of recumbent bicycle for exercise. - Recommend starting with 5 minutes of exercise daily, gradually increasing to 30 minutes. - Discuss high intensity interval training (HIIT) as a method to improve fitness and metabolism. Type 2 diabetes mellitus, controlled Diabetes is well-controlled with recent A1c within target range. No evidence of diabetic retinopathy. - Continue Mounjaro as prescribed. - Encourage lifestyle modifications including exercise. - Monitor blood glucose levels regularly. Class 1 obesity Discussed weight management strategies focusing on exercise and lifestyle changes to aid weight loss and enhance metabolism. - Encourage regular exercise using recumbent bicycle. - Discuss gradual increase in exercise duration and intensity. Iron deficiency anemia due to chronic blood loss Iron deficiency anemia managed with daily iron supplementation, which she reports as effective. - Continue daily iron supplementation with vitamin C to enhance absorption. - Monitor iron levels regularly. Hyponatremia, medication-associated Hyponatremia likely associated with triamterene-hydrochlorothiazide. Plan to adjust medication to assess impact on sodium levels. - Adjust triamterene-hydrochlorothiazide to every other day dosing. - Recheck sodium levels after April 22. - Order basic metabolic panel, urine sodium, and vitamin D level after April 22. Osteopenia Osteopenia identified on previous DEXA scan. Discussed importance of monitoring bone health. - Encourage weight-bearing exercises. History of recurrent gastrointestinal bleeding with AV malformations Gastrointestinal bleeding managed with metronidazole. Addressing insurance issues with medication coverage. - Continue metronidazole as prescribed. - Send prescription with medical necessity documentation to pharmacy. Mixed obsessional thoughts and acts (OCD) OCD managed with sertraline, with significant improvement in symptoms reported. - Continue sertraline as prescribed. General Health Maintenance Reviewed immunization status and preventive screenings. Discussed recent flu vaccination and decision to defer COVID vaccination. Reviewed cancer screenings and other preventive measures. - Encourage regular cancer screenings as appropriate. - Discuss RSV vaccination status and future monitoring. - Reviewed and updated immunization record. Recording duration: 42 minutes Patient here for annual Medicare wellness visit and for review of complete medical problem list. All the elements of the plan were completed as outlined by [facility]. A copy of the prevention plan was given to the patient. I reviewed Medicare Wellness Questionnaire (other physicians involved in care, depression screen, advanced directives), cognitive/memory, and functional assessment. I reviewed and updated the complete problem list, medication list, family history, and immunization records with the patient. I provided preventive counseling and early detection interventions to the patient through health maintenance update and summary of today's office visit. Emily Blair MD documented in this encounter Miscellaneous Notes * Assessment & Plan Note - Emily Blair MD - 04/05/2025 1:00 PM CDT Associated Problem(s): Sick sinus syndrome (HCC) Asymptomatic on metoprolol ER 50 no orthostatic hypotension blood pressure in range continue with the prescriptions updated today Orders: metoprolol XL (TOPROL-XL) 50 mg extended release tablet; Take 1 tablet (50 mg total) by mouth dailybefore breakfast * Assessment & Plan Note - Emily Blair MD - 04/05/2025 1:00 PM CDT Associated Problem(s): Benign hypertension Chronic well-controlled. Because that has sodium in his lower going to back the Dyazide to every other day and hope the sodium level comes into normal range and that the blood pressure does not not go up higher. Consider coming off of diuretic Orders: metoprolol XL (TOPROL-XL) 50 mg extended release tablet; Take 1 tablet (50 mg total) by mouth dailybefore breakfast triamterene-hydroCHLOROthiazide 37.5-25 mg per tablet/capsule; Take 1 tablet/capsule by mouth everyother day * Assessment & Plan Note - Emily Blair MD - 04/05/2025 1:00 PM CDT Associated Problem(s): GAVE (gastric antral vascular ectasia) Intermittent bleeding requiring argon laser treatment. Asymptomatic at this time. Following twice yearly blood counts sooner if she has a symptomatic GI bleed Orders: omeprazole (PriLOSEC) 20 mg capsule; Take 1 capsule (20 mg total) by mouth daily before breakfast * Assessment & Plan Note - Emily Blair MD - 04/05/2025 1:00 PM CDT Associated Problem(s): Chronic GERD Chronic well-controlled informed insurance of her anatomical problems that has the need for prescription Prilosec long-term prescribed by me and recommended long-term by her loss prevention and safety manager Dr. Garcia Orders: omeprazole (PriLOSEC) 20 mg capsule; Take 1 capsule (20 mg total) by mouth daily before breakfast * Assessment & Plan Note - Emily Blair MD - 04/05/2025 1:00 PM CDT Associated Problem(s): Multiple-type hyperlipidemia LDL goal less than 70 with the current levels of 60 we will continue on Crestor 20 mg nightly Orders: rosuvastatin (CRESTOR) 20 mg tablet; Take 1 tablet (20 mg total) by mouth nightly * Assessment & Plan Note - Emily Blair MD - 04/05/2025 1:00 PM CDT Associated Problem(s): Obsessive-compulsive disorder Chronic improved, never expected to be resolved. Recommend continued long-term Zoloft, tolerates this nightly Orders: sertraline (ZOLOFT) 100 mg tablet; Take 1 tablet (100 mg total) by mouth nightly * Assessment & Plan Note - Emily Blair MD - 04/05/2025 1:00 PM CDT Associated Problem(s): Class 1 obesity with serious comorbidity and body mass index (BMI) of 33.0 to 33.9 in adult Chronic persistent without significant change in lifestyle habits which are necessary in order to correct this problem agreed to start using her recumbent bike working her way up to 30 minutes daily * Assessment & Plan Note - Emily Blair MD - 04/05/2025 1:00 PM CDT Associated Problem(s): Iron deficiency anemia due to chronic blood loss Chronic recurrent problem. CBC iron profile due now and again before six-month follow up. Claims Dr. Garcia with visit are taking iron every day however every other day ensures better absorption and I encouraged decreasing to every other day dosing. Take iron with vitamin-C Orders: Comprehensive metabolic panel; Future Albumin Creatinine Ratio, Urine; Future CBC with auto differential; Future Iron level; Future * Assessment & Plan Note - Emily Blair MD - 04/05/2025 1:00 PM CDT Associated Problem(s): Obstructive sleep apnea syndrome Following with Dr. Bond: Recent CPAP changes ???Ok to send order for new APAP at 10-12 cm of water and f/u within 90 days. ?? * Addendum Note - Swati Benedict - 04/05/2025 1:00 PM CDTAddended by: SWATI BENEDICT on: 04/28/2025 02:59 PM Modules accepted: Orders FINANCIAL COUNSELOR * Addendum Note - Swati Benedict - 04/05/2025 1:00 PM CDTAddended by: SWATI BENEDICT on: 04/28/2025 03:13 PM Modules accepted: Orders FINANCIAL COUNSELOR documented in this encounter Plan of Treatment Scheduled Orders Name Type Priority Associated Diagnoses Orde r Schedule Sodium, urine, random Lab Routine Hyponatremia Expected: 04/23/2025, Expires: 04/05/2026 Albumin Creatinine Ratio, Urine Lab Routine Type 2 diabetes mellitus with hyperlipidemia (HCC) Iron deficiency anemia due to chronic blood loss Expected: 09/25/2025, Expires: 12/24/2025 Lipid panel Lab Routine Type 2 diabetes mellitus with hyperlipidemia (HCC) Expected: 09/25/2025, Expires: 12/24/2025 Hemoglobin A1c Lab Routine Type 2 diabetes mellitus with hyperlipidemia (HCC) Expected: 09/25/2025, Expires: 12/24/2025 Comprehensive metabolic panel Lab Routine Type 2 diabetes mellitus with hyperlipidemia (HCC) Iron deficiency anemia due to chronic blood loss Expected: 09/25/2025, Expires: 12/24/2025 CBC with auto differential Lab Routine Type 2 diabetes mellitus with hyperlipidemia (HCC) Iron deficiency anemia due to chronic blood loss Expected: 09/25/2025, Expires: 12/24/2025 Iron level Lab Routine Type 2 diabetes mellitus with hyperlipidemia (HCC) Iron deficiency anemia due to chronic blood loss Expected: 09/25/2025, Expires: 12/24/2025 documented as of this encounter Results * Vitamin D 25 hydroxy (04/28/2025 2:59 PM PEER FINANCIAL COUNSELOR) [facility] Vitamin D 25-OH 59 30 - 80 ng/mL Comment:Testing performed by : [facility], [address] [place] [address], [place] [address] Blood 04/28/2025 2:59 PM PEER FINANCIAL COUNSELOR 04/28/2025 7:56 PM PEER FINANCIAL COUNSELOR us Emily Blair MD LAB BLOOD ORDERABLES Final Result [facility]) [facility] Department [place] [address] documented in this encounter Visit Diagnoses Diagnosis Annual physical exam- Primary Routine general medical examination at a health care facility Class 1 obesity with alveolar hypoventilation, serious comorbidity, and body mass index (BMI) of 33.0 to 33.9 in adult (HCC) Obstructive sleep apnea syndrome Obstructive sleep apnea (adult) (pediatric) Type 2 diabetes mellitus with hyperlipidemia (HCC) Benign hypertension Essential hypertension, benign Multiple-type hyperlipidemia Other and unspecified hyperlipidemia Sick sinus syndrome (HCC) Sinoatrial node dysfunction Iron deficiency anemia due to chronic blood loss Iron deficiency anemia secondary to blood loss (chronic) Chronic GERD GAVE (gastric antral vascular ectasia) Mixed obsessional thoughts and acts Dry mouth Disturbance of salivary secretion Vitamin D deficiency Immunization counseling Hyponatremia Hyposmolality and/or hyponatremia documented in this encounter Discontinued Medications Medication Sig Discontinue Reason Start Date End Da te metoprolol XL (TOPROL-XL) 50 mg extended release tabletIndications:Sick sinus syndrome (HCC),Benign hypertension Take 1 tablet (50 mg total) by mouth daily Reorder 08/16/2024 04/05/2025 tirzepatide (MOUNJARO) 2.5 mg/0.5 mL pen injector injectionIndications:Cont rolled type 2 diabetes mellitus with other circulatory complication, without long-term current use of insulin Inject 0.5 mL (2.5 mg total) under the skin once a week Reorder 08/16/2024 04/05/2025 triamterene-hydroCHLOROth iazide 37.5-25 mg per tablet/capsuleIndications :Benign hypertension Take 1 tablet/capsule by mouth daily Reorder 08/16/2024 04/05/2025 sertraline (ZOLOFT) 100 mg tabletIndications:Mixed obsessional thoughts and acts TAKE 1 TABLET BY MOUTH EVERY DAY Reorder 03/16/2025 04/05/2025 omeprazole (PriLOSEC) 20 mg capsuleIndications:GAVE (gastric antral vascular ectasia),Chronic GERD Take 1 capsule (20 mg total) by mouth daily before breakfast Reorder 03/17/2025 04/05/2025 rosuvastatin (CRESTOR) 20 mg tabletIndications:Multipl e-type hyperlipidemia TAKE 1 TABLET BY MOUTH EVERY DAY Reorder 03/27/2025 04/05/2025 documented as of this encounter Historical Medications * This list may reflect changes made after this encounter. nitrofurantoin monohydrate (MACROBID) 100 mg capsule Take 1 capsule (100 mg total) by mouth 2 (two) times a day 01/03/2025 fluconazole (DIFLUCAN) 150 mg tablet TAKE ONE TAB BY MOUTH ON DAYS 1, 3, AND 7 01/03/2025 added in this encounter Orders Immunization/Injection Count Last Ordered Date First Ordered Date FLU VACCINE HD TRI P F (65Y+) IM - FLUZONE HIGH DOSE 1 04/05/2025 documented in this encounter Care Teams Emergency Medicine Physician Relationship Specialty Start Date End Date Emily Blair MD PCP - General 09/19/16 Billy Ward MD Surgeon Orthopedic Surgery 01/06/17 Hugo Chavez OD [address] [place] [address] Optometry 07/17/17 Sahil Yuan MD [address] [place] [address] Consulting Physician Urology 01/18/18 [place] [id number] [address] Consulting Physician Rheumatology 03/22/21 Edgard Ray MD [address] [facility] [address] [id number] Referring Physician Obstetrics and Gynecology 03/22/21 Osito Garcia MD [address] [facility] [address] [place] [address] Consulting Physician Gastroenterology 08/10/23 Aye Bond MD [address] [place] [address] Consulting Physician Sleep Medicine 04/05/25 documented as of this encounter
--- OUTSIDE RECORDS SUMMARY | 2025-04-28 15:00 | XMS_ITS | Encounter Summary ---
Author Organization [facility] Healthcare Address [address] [place] [address] Care Team Providers Care Mica Inspector Name Role Phone Emily Blair MD Primary Care Provider + [phone] Billy Ward MD Unavailable [phone] Hugo Chavez OD Unavailable Sahil Yuan MD Unavailable [phone] Vivi Chaidez MD Unavailable Edgard Ray MD Unavailable [phone] Osito Garcia MD Unavailable [phone] Aye Bond MD Unavailable Encounter Details Date Type Department Care Team (Late st Contact Info) Description 04/28/2025 3:00 PM BENDER HELPER Lab [facility] [address] [place] [address] Hyponatremia; Vitamin D deficiency; Type 2 diabetes mellitus with hyperlipidemia (HCC); Iron deficiency anemia due to chronic blood loss Social History Tobacco Use Types Packs/Day Years [...] on file Legal Sex Female 11:46 AM BENDER HELPER Gender Identity Not on file Sexual Orientation Not on file Occupation Industry Job Start Date Job End Date retired Not on file Not on file Not on file documented as of this encounter Plan of Treatment Not on file documented as of this encounter Procedures Procedure Name Priority Date/Time Associated Diagnosis Comments VITAMIN D 25 HYDROXY Routine 04/28/2025 2:59 PM BENDER HELPER Vitamin D deficiency documented in this encounter Results * Vitamin D 25 hydroxy (04/28/2025 2:59 PM BENDER HELPER) Vitamin D 25-OH 59 30 - 80 ng/mL Comment:Testing performed by : [facility], [address] [place] [address], [facility] Blood 04/28/2025 2:59 PM BENDER HELPER 04/28/2025 7:56 PM BENDER HELPER us Emily Blair MD LAB BLOOD ORDERABLES Final Result [facility]) [address] [facility] Department [place] [address] documented in this encounter Visit Diagnoses Diagnosis Hyponatremia Hyposmolality and/or hyponatremia Vitamin D deficiency Type 2 diabetes mellitus with hyperlipidemia (HCC) Iron deficiency anemia due to chronic blood loss Iron deficiency anemia secondary to blood loss (chronic) documented in this encounter Care Teams Mica Inspector Relationship Specialty Start Date End Date Emily Blair MD PCP - General 09/19/16 Billy Ward MD Surgeon Orthopedic Surgery 01/06/17 Hugo Chavez OD [address] [place] [address] Optometry 07/17/17 Sahil Yuan MD [address] [place] [address] Consulting Physician Urology 01/18/18 [place] [address] [facility] [address] [place] [address] Consulting Physician Rheumatology 03/22/21 Edgard Ray MD [address] [id number] Referring Physician Obstetrics and Gynecology 03/22/21 Osito Garcia MD [address] [place] [address] [address] [place] [address] Consulting Physician Gastroenterology 08/10/23 Aye Bond MD [address] [place] [address] [address] [place] [address] Consulting Physician Sleep Medicine 04/05/25 documented as of this encounter
--- NOTE | 2025-04-29 15:27 | ED_ITS ---
HPI - Head Injury General Chief complaint: Fall Stated complaint: Fall Injury/Hit Chin Time Seen by Provider: 04/29/25 15:27 Source: patient Mode of arrival: ambulatory Limitations: no limitations History of Present Illness HPI Narrative: Deepali is a 80-year-old female patient presenting to the clinic today with complaints of ground level fall- hitting her chin. Has a very small superficial abrasion to the right chin. Is c/o some chronic neck pain- no change in neck pain. Denies any LOC, dizziness, or headache. Fell [facility]. Has not taken any medications for her symptoms. Related Data Home Medications ?Medication ?Instructions ?Recorded ?Confirmed ?Last Taken ?Type hydroxychloroquine 200 mg tablet mg PO 04/29/25 Unkno wn History metoprolol succinate 50 mg mg PO 04/29/25 Unknown His tory tablet,extended release 24 hr rosuvastatin 20 mg tablet mg 04/29/25 Unknown History sertraline 100 mg tablet mg 04/29/25 Unknown History tirzepatide 2.5 mg/0.5 mL mg subcut 04/29/25 Unknown History subcutaneous pen injector (Mounjaro) triamterene 37.5 tablet 04/29/25 Unknown His tory mg-hydrochlorothiazide 25 mg tablet Allergies Allergy/AdvReac Type Severity Reaction Status Date / Time cephalexin Allergy Unknown Nausea and Verified 04/29/25 15:46 Vomiting latex Allergy Unknown Rash Verified 04/29/25 15:46 propoxyphene Allergy Unknown Dizziness Verified 04/29/25 15:46 Review of Systems Review of Systems: Pertinent positives per HPI. Patient denies any fever, chills, rash, headache, visual changes, dizziness, cough, runny nose, sore throat, shortness of breath, chest pain, palpitations, nausea, vomiting, diarrhea, constipation, abdominal pain, or any urinary issues. PMFSH Comments At the time of my signature, I reviewed and agree with the nursing past medical, surgical, social, and family history. There is no relevant family history pertinent to the patient complaint. Exam Narrative: General: Well-developed, well nourished, in no apparent distress Head: Normocephalic, atraumatic Eyes: Pupils equally round and reactive to light bilaterally, EOM intact, sclera and conjunctive clear, no discharge, lids normal Ears: TMs intact and clear, ear canals clear, no drainage, grossly hearing normal. Nose: Nares patent, no discharge, no inflammation, no sinus tenderness. Mouth: Oropharynx without lesions or masses, good dentition, MMM. Tongue midline, even rise and fall of uvula Neck: Supple, trachea midline, no enlargement of anterior or posterior cervical nodes, no thyroid masses or goiter palpable. Cardio: Regular rate and rhythm, s1 and s2 normal, no murmur appreciated. Resp: Clear to auscultation bilaterally anteriorly and posteriorly, no rhonchi, rales, wheezing or rubs Musculoskeletal: No deformity, non-tender to palpation, grossly normal range of motion, muscle strength strong and equal, peripheral pulse strong, no edema, no cyanosis, normal gait and station Neuro: Alert and oriented x4 with normal speech, no focal deficits, cranial nerves I through XII intact, muscle strength 5 out of 5, sensation intact bilaterally, negative Romberg test Course Course Emergency Course: Portions of this record may have been created with voice recognition software. Level of Care: Express Care Visit Vital Signs Vital signs: Vital Signs Temperature 36.8 C 04/29/25 15:30 Pulse Rate 59 L 04/29/25 15:30 Respiratory Rate 16 04/29/25 15:30 Blood Pressure 154/59 H 04/29/25 15:30 Pulse Oximetry 100 04/29/25 15:30 Oxygen Delivery Room Air 04/29/25 15:30 Temperature 36.8 C 04/29/25 15:30 Pulse Rate 59 L 04/29/25 15:30 Respiratory Rate 16 04/29/25 15:30 Blood Pressure 154/59 H 04/29/25 15:30 Pulse Oximetry 100 04/29/25 15:30 Oxygen Delivery Room Air 04/29/25 15:30 Vital signs reviewed MDM - Head Injury MDM Narrative Medical decision making narrative: At the time of visit patient is resting comfortably on the exam table. Patient appears to be nontoxic. Complaints of ground level fall- hitting her chin. Has a very small superficial abrasion to the right chin. Is c/o some chronic neck pain- no change in neck pain. Denies any LOC, dizziness, or headache. Fell outside [facility] [place] [facility]. Has not taken any medications for her symptoms. On exam patient has a small superficial abrasion without bleeding to the right chin. Neuro check is normal. Plan: I suspect patient has ground level fall with a small superficial abrasion to the right chin. Supportive measures were discussed with the patient and they voiced understanding discharge instructions and agrees to treatment plan. Return precautions reviewed Differential Diagnosis Differential diagnosis: Likely concussion without loss of consciousness, closed head injury, subarachnoid hematoma, subdural hematoma and other (abrasion, acute on chronic neck pain, ground level fall) Discharge Plan Discharge Clinical Impression: Fall from ground level, Chronic neck pain Abrasion of chin Qualifiers: Encounter type: initial encounter Qualified Code(s): S00.81XA - Abrasion of other part of head, initial encounter Patient Disposition: Home Condition: Stable Instructions: Antibiotic Form, Fall Prevention for Older Adults (ED), Head Injury (ED), Abrasion (ED) Additional Instructions: Keep abrasions clean and dry Tylenol as needed for headache for the first 24 hours then may take Ibuprofen, Increase fluids and stay well hydrated. Avoid taking any sedative medications such as muscle relaxers, benadryl, benzos, or narcotic pain medication. Watch for red flag symptoms such as confusion, lethargy, nausea/vomiting, worsening of headache, visual changes, increase in dizziness, or any stroke-like symptoms. If these symptoms develop go to the Emergency Room immediately. Reduce stimuli- lights, computers, videogames, smart phones, tv, and noise over the next 2 days. Increase stimuli gradually. If headache worsens with stimuli reduce stimuli to tolerable level. Follow up with your PCP in 5- 7 days if symptoms persist as post-concussion syndrome treatment may need to be initiated. Patient Language: Surinamese Prescriptions: No Action metoprolol succinate 50 mg tablet extended release 24 hr PO sertraline 100 mg tablet triamterene-hydrochlorothiazid 37.5-25 mg tablet hydroxychloroquine 200 mg tablet PO rosuvastatin 20 mg tablet Mounjaro 2.5 mg/0.5 mL pen injector SUBCUT Follow-up/Referrals: Rossy,MD Emily [Primary Care Provider] Time of Disposition: 16:03 Quality NIHSS Nursing Documentation ED NIHSS nursing documentation: reviewed/agree
[2025-04-29 15:30] VITALS: BP 154/59; PULSE 59; RESP 16; TEMP 36.8; O2SAT 100
--- OUTSIDE RECORDS SUMMARY | 2025-04-29 15:34 | XMS_ITS | Encounter Summary ---
Author Organization [facility] Healthcare Address [address] [place] [address] Care Team Providers Care Assembling Fabricator Name Role Phone Emily Blair MD Primary Care Provider + [phone] Billy Ward MD Unavailable [phone] Hugo Chavez OD Unavailable Sahil Yuan MD Unavailable [phone] Vivi Chaidez MD Unavailable Edgard Ray MD Unavailable [phone] Osito Garcia MD Unavailable [phone] Aye Bond MD Unavailable Encounter Details Date Type Department Care Team (Late st Contact Info) Description 03/31/2025 Results Follow-Up [facility] [address] [place] [phone] Emily Blair MD [address] [place] [address] CBC with auto differential, Iron profile w/ IBC, Cholesterol, LDL, direct, Additional followed-up results: 5 Social History Tobacco Use Types Packs/Day Years Used Date Smoking Tobacco: Never Smokeless Tobacco: Never Alcohol Use Standard Drinks/Week Comments No 0 (1 standard drink = 0.6 oz pur e alcohol) AUDIT-C Answer Date Recorded Q1: How often do you have a drink containing alc ohol? Monthly or less 06/09/2024 Q2: How many drinks containi ng alcohol do you have on a typical day when you are drinking? 1 or 2 06/09/2024 Q3: How often do you have si x or more drinks on one occasion? Never 06/09/2024 PHQ-2 Answer Date Recorded PHQ-2 Total Score (If total score is 3 or more points, staff should administer the PHQ-9) 0 02/10/2024 Personal Safety Answer Date Recorded Have you ever been in or are you currently in a harmful physical or emotional relationship or is someone making you feel afraid or unsafe? 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 Gender Identity Not on file Sexual Orientation Not on file Occupation Industry Job Start Date Job End Date retired Not on file Not on file Not on file documented as of this encounter Plan of Treatment Not on file documented as of this encounter Visit Diagnoses Not on filedocumented in this encounter Care Teams Assembling Fabricator Relationship Specialty Start Date End Date Emily Blair MD PCP - General 09/19/16 Billy Ward MD Surgeon Orthopedic Surgery 01/06/17 Hugo Chavez OD [address] [place] [address] Optometry 07/17/17 Sahil Yuan MD [address] [place] [address] Consulting Physician Urology 01/18/18 [place] [address] [address] Consulting Physician Rheumatology 03/22/21 Edgard Ray MD [address] [facility] [address] [address] Referring Physician Obstetrics and Gynecology 03/22/21 Osito Garcia MD [address] [facility] [address] [place] [address] Consulting Physician Gastroenterology 08/10/23 Aye Bond MD [address] [facility] [address] [place] [address] Consulting Physician Sleep Medicine 04/05/25 documented as of this encounter
--- OUTSIDE RECORDS SUMMARY | 2025-04-29 15:34 | XMS_ITS | Clinical Summary ---
Author Organization CC [facility] [address] [place] [address] Phone Care Team Providers Care Sharemilker Name Role Phone Emily Blair MD Primary Care Provider + [phone] Billy Ward MD Unavailable [phone] Hugo Chavez OD Unavailable Sahil Yuan MD Unavailable [phone] Vivi Chaidez MD Unavailable Edgard Ray MD Unavailable [phone] Osito Garcia MD Unavailable [phone] Aye Bond MD Unavailable Allergies Active Allergy Reactions Criticality Noted Date Comments Carvedilol Other (See comments) High 05/14/2021 Raised blood pressure Celecoxib Other (See comments) Low 05/28/2017 hypertension Cephalexin Nausea & Vomiting Low Chlorthalidone Unknown 08/31/2015 Dulaglutide Unknown 05/14/2021 Latex Rash,Blisters,Hives High 12/18/2014 Phentermine-Topiramate Unknown High 12/10/2018 Propoxyphene Dizziness Low Propoxyphene-Acetaminophe n Unknown 04/03/2015 Semaglutide Diarrhea Low 08/31/2020 Medications hydrOXYchloroQUINE (PLAQUENIL) 200 mg tablet Take 1 tablet (200 mg total) by mouth daily 03/11/20 22 Active blood glucose diagnostic (glucose blood) strip Use to check blood sugar daily. 100 each 11 09/01/19 24 Active lancets misc 1 each by other route as directed Use to check glucose daily. 100 each 2 09/01/19 24 Active ferrous sulfate 325 mg (65 mg of elemental iron) tabletIndications: GAVE (gastric antral vascular ectasia),Iron deficiency anemia due to chronic blood loss Take 1 tablet (325 mg total) by mouth 3 (three) times a week Take with vitamin-C 250 mg at each dose 90 tablet 3 08/23/19 25 Active ascorbic acid (Vitamin C) 500 mg tablet,chewable Take 1 tablet/chew tab (500 mg total) by mouth daily Taking half a tablet daily (250mg) Active Lacto no.76/Bifido/FOS/l arch (WOMEN'S PROBIOTIC ORAL) Take 1 tablet by mouth daily Active amoxicillin 500 mg tablet/capsule TAKE 4 CAPSULES BY MOUTH ONE HOUR BEFORE DENTAL PROCEDURE 4 tablet/capsu le 2 02/14/20 25 Active fluconazole (DIFLUCAN) 150 mg tablet TAKE ONE TAB BY MOUTH ON DAYS 1, 3, AND 7 01/04/20 25 Active nitrofurantoin monohydrate (MACROBID) 100 mg capsule Take 1 capsule (100 mg total) by mouth 2 (two) times a day 01/04/20 25 Active metoprolol XL (TOPROL-XL) 50 mg extended release tabletIndications: Sick sinus syndrome (HCC),Benign hypertension Take 1 tablet (50 mg total) by mouth daily before breakfast 90 tablet 3 04/05/20 25 Active omeprazole (PriLOSEC) 20 mg capsuleIndications :GI Bleed Take 1 capsule (20 mg total) by mouth daily before breakfast 90 capsule 3 04/05/20 25 Active rosuvastatin (CRESTOR) 20 mg tabletIndications: Multiple-type hyperlipidemia Take 1 tablet (20 mg total) by mouth nightly 90 tablet 3 04/05/20 25 Active sertraline (ZOLOFT) 100 mg tabletIndications: Mixed obsessional thoughts and acts Take 1 tablet (100 mg total) by mouth nightly 90 tablet 3 04/05/20 25 Active tirzepatide (MOUNJARO) 2.5 mg/0.5 mL pen injector injectionIndicatio ns:Type 2 diabetes mellitus with hyperlipidemia (HCC) Inject 0.5 mL (2.5 mg total) under the skin once a week 6 mL 2 04/05/20 25 Active triamterene-hydroC HLOROthiazide 37.5-25 mg per tablet/capsuleIndi cations:Benign hypertension Take 1 tablet/capsul e by mouth every other day 45 tablet/capsu le 3 04/05/20 25 026 Active metoprolol XL (TOPROL-XL) 50 mg extended release tabletIndications: Sick sinus syndrome (HCC),Benign hypertension Take 1 tablet (50 mg total) by mouth daily 90 tablet 1 08/16/19 25 025 Discontin ued(Reord er) tirzepatide (MOUNJARO) 2.5 mg/0.5 mL pen injector injectionIndicatio ns: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, without long-term current use of insulin Inject 0.5 mL (2.5 mg total) under the skin once a week 6 mL 2 08/16/19 25 025 Discontin ued(Reord er) triamterene-hydroC HLOROthiazide 37.5-25 mg per tablet/capsuleIndi cations:Benign hypertension Take 1 tablet/capsul e by mouth daily 90 tablet 2 08/16/19 25 025 Discontin ued(Reord er) sertraline (ZOLOFT) 100 mg tabletIndications: Mixed obsessional thoughts and acts TAKE 1 TABLET BY MOUTH EVERY DAY 30 tablet 03/16/20 25 025 Discontin ued(Reord er) omeprazole (PriLOSEC) 20 mg capsuleIndications :GAVE (gastric antral vascular ectasia),Chronic GERD Take 1 capsule (20 mg total) by mouth daily before breakfast 90 capsule 03/17/20 25 025 Discontin ued(Reord er) rosuvastatin (CRESTOR) 20 mg tabletIndications: Multiple-type hyperlipidemia TAKE 1 TABLET BY MOUTH EVERY DAY 30 tablet 03/27/20 25 025 Discontin ued(Reord er) Active Problems Problem Noted Date Diagnosed Date Sjogren's syndrome 10/31/2024 Overview (10/31/2024): Taking Plaquenil Controlled type 2 diabetes m ellitus with other circulatory complication, without long-term current use of insulin 02/10/2024 Elevated antinuclear antibody (JANNIE) level 2020 GAVE (gastric antral vascular ectasia) Overview (08/10/2023): Consultation Dr. Garcia finally confirmed diagnosis July 2023 =GAVE (gastric antral vascular ectasia) (Primary) Assessment & Plan: Patient has chronic anemia and history of gave syndrome with multiple episodes of endoscopic treatment with argon plasma cauterization. At this time will start by checking stool for occult blood and check blood counts and iron level. If hemoglobin is less than 10 then will proceed with endoscopy and repeat treatmen Assessment & Plan (04/05/2025 3:05 PM CDT): Intermittent bleeding requiring argon laser treatment. Asymptomatic at this time. Following twice yearly blood counts sooner if she has a symptomatic GI bleed Orders: omeprazole (PriLOSEC) 20 mg capsule; Take 1 capsule (20 mg total) by mouth daily before breakfast Assessment & Plan (12/01/2023 6:09 PM CDT): Schedule CT abdomen pelvis with contrast. Schedule upper GI endoscopy. Continue iron supplements. Assessment & Plan (08/10/2023 5:04 PM RESIDENTIAL LIVING ASSISTANT): Patient has chronic anemia and history of gave syndrome with multiple episodes of endoscopic treatment with argon plasma cauterization. At this time will start by checking stool for occult blood and check blood counts and iron level. If hemoglobin is less than 10 then will proceed with endoscopy and repeat treatment. Iron deficiency anemia due to chronic blood loss 12/17/2020 Overview (05/08/2022): 2020 (+) Dr. Castaneda argon laser for Gastric antral vascular ectasia with bleeding, 2019(+) Dr. Castaneda, angiodysplasia of the stomach no active bleeding 2019 (-) colonoscopy Dr. Castaneda diverticulosis only Received injectable iron from her clear coat sprayer Dr. Munoz Taking iron 3 days weekly with breakfast Assessment & Plan (04/05/2025 3:05 PM CDT): Chronic recurrent problem. CBC iron profile due now and again before six-month follow up. Claims Dr. Garcia with visit are taking iron every day however every other day ensures better absorption and I encouraged decreasing to every other day dosing. Take iron with vitamin-C Orders: Comprehensive metabolic panel; Future Albumin Creatinine Ratio, Urine; Future CBC with auto differential; Future Iron level; Future Assessment & Plan (02/25/2023 2:24 PM CDT): Received iron infusions x3 in December 2022. Has not re-checked iron levels and is experiencing more fatigue. Will re-check CBC and iron profile today. Advised to take oral supplement as rxd. Atypical squamous cells of u ndetermined significance on cytologic smear of cervix (ASC-US) 12/12/2020 Atherosclerosis of aorta 08/31/2020 Osteopenia, senile 01/10/2019 Overview (01/10/2019): Arm bone density December 2018 T-score test -2.1 DXA LEFT FOREARM RESULTS SUMMARY: 1. UD BMD 0.402 (g/cmsquared); T-SCORE -0.7 2. MID BMD 0.473 (g/cmsquared); T-SCORE -2.5 3. 1/3 BMD 0.563 (g/cmsquared); T-SCORE -2.2 4. TOTAL BMD 0.468 (g/cmsquared); T-SCORE -2.1 Sick sinus syndrome 08/02/2018 Overview (09/16/2021): apcs Assessment & Plan (04/05/2025 3:05 PM CDT): Asymptomatic on metoprolol ER 50 no orthostatic hypotension blood pressure in range continue with the prescriptions updated today Orders: metoprolol XL (TOPROL-XL) 50 mg extended release tablet; Take 1 tablet (50 mg total) by mouth daily before breakfast History of total hip arthroplasty, right 017 Irritable bowel syndrome with constipation 12/18 Obsessive-compulsive disorder 11/05/2013 Overview (09/25/2016): OCD (obsessive compulsive disorder) Assessment & Plan (04/05/2025 3:05 PM CDT): Chronic improved, never expected to be resolved. Recommend continued long-term Zoloft, tolerates this nightly Orders: sertraline (ZOLOFT) 100 mg tablet; Take 1 tablet (100 mg total) by mouth nightly Chronic GERD 11/05/2013 Overview (09/14/2021): EGD 05/31/2021 (+) Dr. Castaneda argon laser for Gastric antral vascular ectasia with bleeding Assessment & Plan (04/05/2025 3:05 PM CDT): Chronic well-controlled informed insurance of her anatomical problems that has the need for prescription Prilosec long-term prescribed by me and recommended long- term by her needle punch machine operator helper Dr. Garcia Orders: omeprazole (PriLOSEC) 20 mg capsule; Take 1 capsule (20 mg total) by mouth daily before breakfast Assessment & Plan (02/29/2020 4:21 PM CDT): Pt has been taking OTC prilosec 20mg but we will increase the dose to 40mg daily. GERD dietary guidelines reviewed and added to the patient education. Multiple-type hyperlipidemia 11/05/2013 Overview (08/12/2017): Images from the original note were not included. Managed by Cardiology NANCY SAEZ [[id number]] Coronary calcium sort (-) July 2017 Assessment & Plan (04/05/2025 3:05 PM CDT): LDL goal less than 70 with the current levels of 60 we will continue on Crestor 20 mg nightly Orders: rosuvastatin (CRESTOR) 20 mg tablet; Take 1 tablet (20 mg total) by mouth nightly Class 1 obesity with serious comorbidity and body mass index (BMI) of 33.0 to 33.9 in adult 11/05/2013 Overview (09/26/2016): Obesity Assessment & Plan (04/05/2025 3:05 PM CDT): Chronic persistent without significant change in lifestyle habits which are necessary in order to correct this problem agreed to start using her recumbent bike working her way up to 30 minutes daily Assessment & Plan (02/29/2020 4:29 PM CDT): Pt has been on Ozempic since 01/18/20 and has lost around 5-7 pounds since starting. She reports that it makes her feel full. She has experience some nausea and acid reflux but isn't sure that it is related to the Ozempic. She did test positive for Covid and states that she and her experienced a myriad of symptoms and states that could be the cause. She does want to continue to Ozempic. We discussed increasing the dose today and she is in agreement, so we will increase the dose to 0.5mg once weekly. She has a f/u with Dr. GREENFIELD scheduled for May, so we will leave that appt. She will call me in the interim if she experiences any more unpleasant side effects and needs to be taken off the Ozempic. Assessment & Plan (01/18/2020 2:46 PM CDT): She has brought in her Ozempic injection today and I have taught both her and her how to use it. Her gave her the 1st shot today while here in the office. I did advise them to go to the Ozempic website and watch their video if they have any questions next week when they get ready to do it next week. They verbalized understanding. She will start Ozempic 0.25mg subcutaneously once weekly--starting today as 1st injection was given. She will f/u in 4-6 weeks. Assessment & Plan (01/13/2020 4:06 PM CDT): HGBA1C= 6.3 We have discussed today at length the possible injections we can use. I have written the names down so if the Ozempic is too expensive for her, she can call her insurance and find out which one is preferred and let us know. Once we have the injection ordered and she has picked it up--she can make an appt to come see me and I will teach her how to use it. Obstructive sleep apnea syndrome 03/11/2013 Overview (09/24/2016): CHRIS on CPAP Assessment & Plan (04/05/2025 3:05 PM CDT): Following with Dr. Bond: Recent CPAP changes O k to send order for new APAP at 10-12 cm of water and f/u within 90 days. Genital herpes simplex 11/11/2012 Overview (09/24/2016): Genital herpes Benign hypertension Assessment & Plan (04/05/2025 3:05 PM CDT): Chronic well-controlled. Because that has sodium in his lower going to back the Dyazide to every other day and hope the sodium level comes into normal range and that the blood pressure does not not go up higher. Consider coming off of diuretic Orders: metoprolol XL (TOPROL-XL) 50 mg extended release tablet; Take 1 tablet (50 mg total) by mouth daily before breakfast triamterene-hydroCHLOROthiazide 37.5-25 mg per tablet/capsule; Take 1 tablet/capsule by mouth every other day Assessment & Plan (09/01/2023 2:46 PM CDT): BP stable in office today on current therapy. No acute findings on exam. labs from last month unremarkable. Continue current regimen and low salt diet. Assessment & Plan (04/27/2023 2:26 PM RESIDENTIAL LIVING ASSISTANT): BP stable in office today on current therapy. No acute findings on exam. Continue current regimen and low salt diet. Assessment & Plan (03/27/2023 3:04 PM CDT): BP stable in office today on current therapy. No acute findings on exam. Continue current regimen and low salt diet. Assessment & Plan (02/25/2023 2:24 PM CDT): BP stable in office today on current therapy. No acute findings on exam. Continue current regimen and low salt diet. Assessment & Plan (01/29/2023 1:23 PM CDT): BP stable in office today on current therapy. No acute findings on exam. Continue current regimen and low salt diet. Assessment & Plan (12/29/2022 3:34 PM CDT): BP stable in office today on current therapy. No acute findings on exam. Continue current regimen and low salt diet. Resolved Problems Problem Noted Date Diagnosed Date Resolved Date Bronchitis 07/02/2023 09/01/2023 Assessment & Plan (07/02/2023 3:24 PM RESIDENTIAL LIVING ASSISTANT): URI symptoms for 2 weeks. Tested negative for COVID and FLU in office today. Clear PND, no other acute findings on exam. Lungs clear, sating 97% on RA. Will order CXR due to PMH of sarcoidosis. Rxd promethazine DM needed for cough. Tylenol/Ibuprofen as needed for pain. Increase fluids (water) Cool mist humidifier at night Use sinus rinses to help flush bacteria and help with congestion. Encouraged honey, marshmallows, gelatin, or chloraseptic to help coat throat. Call with any worsening or persistent symptoms. Need for vaccination 03/27/2023 025 Assessment & Plan (03/27/2023 3:05 PM CDT): Given 23-24 influenza vaccine and updated prevnar 20 vaccine in office today. Otalgia, right 02/25/2022 09/01/2023 Assessment & Plan (02/25/2022 4:59 PM CDT): Presents with ear pain likely from sinusitis. Finish Doxycycline as directed. Continue Flonase and aggressive sinus care. Discussed possible ENT referral in future if symptoms persist. Follow with Dr. blair in 3 months. Call with any changes or concerns. Severe obesity (BMI 35.0-35. 9 with comorbidity) 02/14/2022 09/01/2023 Assessment & Plan (04/27/2023 2:26 PM RESIDENTIAL LIVING ASSISTANT): Down 7 lbs in 1 month, BMI down to 35.8. no acute findings on exam, attempting to lower carbs in diet. No regular exercise routine. Educated on AHA recommendations for heart healthy exercise. Assessment & Plan (03/27/2023 3:04 PM CDT): Down 3 lbs in 1 month, BMI down to 36.9. no acute findings on exam, attempting to lower carbs in diet. No regular exercise routine. Educated on AHA recommendations for heart healthy exercise. Assessment & Plan (01/29/2023 1:19 PM CDT): Down 8 lbs in 1 month, BMI down to 39.8. no acute findings on exam, attempting to lower carbs in diet. No regular exercise routine. Educated on AHA recommendations for heart healthy exercise. Upper respiratory tract infection 02/14/2022 12/29/2022 Assessment & Plan (02/25/2022 4:59 PM CDT): Has mostly resolved with Doxycycline. Finish course as directed. Continue aggressive sinus care. Call with any changes or concerns. Discussed possible sinus CT and/or ENT referral in future if symptoms return. Follow with Dr. blair in 3 months. Call with any changes or concerns. Assessment & Plan (02/14/2022 4:05 PM CDT): Presents with URI symptoms for 2-3 weeks. Has not resolved with augmentin or medrol mary kay. Wheezing and questionable crackles on exam. Will order CXR to r/o PNE. Will order CBC to look of infection. Rxd Doxycycline and Promethazine DM as needed. Encouraged aggressive sinus care. Keep follow up with sleep medicine in 2 weeks. Call with any changes or concerns. Cough 02/14/2022 02/25/2022 Assessment & Plan (02/14/2022 4:01 PM CDT): See plan for URI above. Dry mouth not due to sicca syndrome 09/16/2021 12/29/2022 Overview (09/16/2021): Prescribed to trial Plaquenil by Rheumatology, this is on suspension waiting for clearance from the clearing inspector Dr. jayla Trent optical COVID-19 virus detected 02/16/2020 09/0 11/2021 Overview (02/16/2020): (+) 02/17/2020 Assessment & Plan (02/29/2020 4:25 PM CDT): Pt requesting a chest x-ray bc she had Covid and is nervous that her x-ray will show something bad as a result of Covid. I did explain to her that this is not normally the case with Covid, but that we can order the x-ray since she has had a cough for months now--which could also be caused from reflux. We will get a chest x-ray and R/O infectious process or lesion. Chronic fatigue 01/13/2020 06/12/2020 Assessment & Plan (01/13/2020 4:09 PM CDT): Fatigue work up-- iron studies: iron, TIBC, retic count, ferritin, CBC We will do these today, and next week we will also discuss her CPAP and the last time it was checked by the sleep doctor. Pt is taking zoloft at night as well as melatonin so maybe these drugs are making her too sleepy and that is why she is feeling so tired. Urinary tract infection symptoms 08/24/2019 06/12/2020 Assessment & Plan (08/24/2019 3:47 PM RESIDENTIAL LIVING ASSISTANT): Pt was treated over the phone about 1 month ago for UTI symptoms with Macrobid. She reports that she did initially feel better but this morning started having symptoms again. She reports burning with urination, frequency and urgency. Has taken AZO this morning, so as a result I won't do a urine dip today as the color may skew the results. We will get a UA today with reflex to culture. In the meantime I have prescribed pyridium for relief for the patient. Pt is insistent on starting on Macrobid for more relief. We discussed that this may not help her, if, in fact, this isn't a true UTI, and that she may not get any relief from it if it isn't. We also discussed that even if it is a UTI, that Macrobid may not be susceptible to this certain bacteria, and that we may have to put her on a new antibiotic. She states that she is fine with that and she would rather just start on it since she did get relief last time. UA/CS results pending. Could be bladder issue--may need post void sono. May be related to aging and postmenopausal problems--may need to see BUSINESS MANAGEMENT PROFESSOR sooner. She does have an upcoming appt with Dr. Yuan in September. 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 Rhinitis, chronic 05/23/2014 06/12/2020 Overview (09/26/2016): Vasomotor rhinitis Vertigo 11/05/2013 12/29/2022 Overview (09/29/2017): Images from the original note were not included. Heart monitor September 2017, occasional SVT Prediabetes 11/05/2013 08/16/2024 Overview (09/25/2016): Fasting hyperglycemia Assessment & Plan (09/01/2023 2:47 PM CDT): Last HbA1c in July was down to 5.4 from 6.5 in December. Attempted to increase dose frequency to try an get on 5mg dose but experience dizziness, fatigue, and nausea. down 1 lbs in last month, BMI down to 34.5. refilled 2.5mg dose. Dicussed symptoms or high and low glucose in detail, handout given. Give sample contour [employer] meter in office today, strips and lancets sent to pharmacy. Continue diet and exercise. Assessment & Plan (04/27/2023 2:26 PM RESIDENTIAL LIVING ASSISTANT): Last HbA1c in December was 6.5. Tolerating mounjaro at 2.5mg dose, down 7 lbs in last month, BMI down to 35.8. refilled 2.5mg dose. Continue diet and exercise. Assessment & Plan (03/27/2023 3:03 PM CDT): Last HbA1c in December was 6.5. Tolerating mounjaro at 2.5mg dose, down 3 lbs in last month, BMI down to 36.9. refilled 2.5mg dose. Continue diet and exercise. Follow in 1 month. Assessment & Plan (02/25/2023 2:22 PM CDT): Last HbA1c in December was 6.5. Tolerating mounjaro at 2.5mg dose, down 6 lbs in last month, BMI down to 47.8. refilled 2.5mg dose. Will check BMP, CBC, iron profile today to assess kidney function and anemia> Continue diet and exercise. Follow in 1 month. Assessment & Plan (01/29/2023 1:23 PM CDT): Last HbA1c in December was 6.5. Tolerating mounjaro with mild nausea, down 8 lbs in last month. Will continue at 5mg dose. Rxd compazine as needed, nausea could also be related to recent iron infusion. Follow in 1 month. Assessment & Plan (12/29/2022 3:34 PM CDT): Impaired fasting glucose, last HbA1c 3 days ago was 6.5. compliant with metformin but increases give her diarrhea. BMI at 41.3. Will rx Mounjaro 2.5mg weekly as directed, first injection given in office today during teaching injection method. Call with any changes or concerns. Follow in 1 month to possibly adjust dose. History of Randolph's palsy 11/05/201312/20 Overview (09/25/2016): History of Randolph's palsy Encounters Date Type Department Care Team Description 04/28/2025 3:00 PM RESIDENTIAL LIVING ASSISTANT Lab [facility] [address] [place] [address] Hyponatremia; Vitamin D deficiency; Type 2 diabetes mellitus with hyperlipidemia (HCC); Iron deficiency anemia due to chronic blood loss 04/05/2025 1:00 PM CDT Office Visit [facility] [address] [place] [address] Emily Blair MD Annual physical exam (Primary Dx); Class 1 [...] mouth; Vitamin D deficiency; Immunization counseling; Hyponatremia 04/05/2025 11:30 AM CDT Ancillary Procedure [facility] [address] [place] [address] Screening mammogram for breast cancer 03/31/2025 Results Follow-Up [facility] [address] [place] [address] Emily Blair MD CBC with auto differential, Iron profile w/ IBC, Cholesterol, LDL, direct, Additional followed-up results: 5 03/30/2025 11:05 AM CDT Lab [facility] [address] [place] [address] 03/30/2025 10:50 AM CDT Lab [facility] [address] [place] [address] Iron deficiency anemia due to chronic blood loss; 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, without long-term current use of insulin from Last 3 Months Immunizations Immunization Administration Dates Next Due Influenza, Quadrivalent, Hig h Dose, Preservative Free, Intrr 03/27/2023,04/08/2022,05/08/2021,04/26 Influenza, Quadrivalent, Spl it, Intramuscular 03/26/2019 Influenza, Trivalent, High D ose, Split, Preservative Free, Intramuscular 04/05/2025,04/06/2024,03/26/2019,04/07,04/23/2017,04/08/2016,04/09/2015 Influenza, Trivalent, IM (MDV) 2015 Influenza, Unspecified 04/08/2016 Moderna SARS-CoV-2 Monovalen t Vaccination (12+ YRS) 04/26/2021,09/10/2020,08/02/2020 Pneumococcal Conjugate PCV 13 05/22/2015 Pneumococcal Conjugate Pcv20 03/27/2023 Pneumococcal Polysaccharide PPV23 03/11/2013 RSV Vaccine, Pref, Recombina nt, Subunit, Adjuvanted, PF, IM (Arexvy) 08/11/2023 Tdap 06/22/2016,05/21/2011 ZOSTER LIVE 11/19/2007 ZOSTER Recombinant 02/08/2019,09/22/2018 Surgical History Surgery Date Site/Laterality Comments BIOPSY 06/22/1971 - 06/21/1972 vocal cord nodule CERVICAL CONE BIOPSY 06/22/1992 - 06/21/1993 atypical endocervical cells: benign pathology CARPAL TUNNEL RELEASE 06/22/2002 - 06/21/2003 and trigger thumb DUPUYTREN CONTRACTURE RELEASE 06/22/2004 - 06/21/2005 CHOLECYSTECTOMY 06/22/2006 - 06/21/2007 KNEE ARTHROSCOPY Bilateral TOTAL HIP ARTHROPLASTY 06/22/2015 - 06/21/2016 FL FLUORO GUIDED INJECTION HIP LEFT 06/08/2017 Left FL FLUORO GUIDED INJECTION HIP LEFT 11/18/2017 Left FL FLUORO GUIDED INJECTION HIP LEFT 03/05/2018 Left FL FLUORO GUIDED INJECTION HIP LEFT 09/08/2018 Left JOINT REPLACEMENT TOTAL HIP ARTHROPLASTY 12/15/2018 Left ESOPHAGOSCOPY / EGD 08/02/2007 On (-) Dr. Beth ESOPHAGOSCOPY / EGD 12/26/2020 (+) Dr. Castaneda, angiodysplasia of the stomach no active bleeding COLONOSCOPY 01/09/2015 Dr. Hakan dickerson [facility] (-) diverticulosis found COLONOSCOPY 2014 COLONOSCOPY 12/26/2020 (-) Dr. Castaneda, only diverticulosis found ESOPHAGOSCOPY / EGD 05/22/2021 (+) Dr. 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 Garcia angiodysplasia stomach treated with argon laser Medical History Medical History Date Comments Osteoporosis History of Randolph's palsy 2013 Abnormal Pap smear of cervix 1992 aty pical endocervical cells Genital herpes Anxiety and depression OCD (obsessive compulsive disorder) Sarcoidosis Mitral valve prolapse GERD (gastroesophageal reflux disease) Hyperlipidemia Osteoarthritis Dizziness Menopause Chest wall pain 2 para 2 Diverticulosis CHRIS (obstructive sleep apnea) Hypertension Hyperlipemia OCD (obsessive compulsive disorder) Prediabetes 11/05/2013 Fasting hypergly cemia Family History Medical History Relation Name Comments Diabetes Brother 1 Kidney failure Brother 2 COD Heart attack Brother 3 Diabetes Father Heart attack Father COD at age 45 Diabetes Maternal Grandmother Stroke Maternal Grandmother COPD Mother Heart failure Mother COD at age 96 Hypertension Mother Skin cancer Mother Stomach cancer Mother's Sister Diabetes Paternal Grandmother Skin cancer Son Relation Name Status Comments Brother 1 Brother 2 Brother 3 Father (Age 45) Maternal Grandmother Mother (Age 96) Mother's Sister Paternal Grandmother Son Social History Tobacco Use Types Packs/Day Years Used Date Smoking Tobacco: Never Smokeless Tobacco: Never Tobacco Cessation:Counseling Given: Not Answered Alcohol Use Standard Drinks/Week Comments Yes 0 [...] on file Legal Sex 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 Gender Identity Not on file Sexual Orientation Not on file Occupation Industry Job Start Date Job End Date retired Not on file Not on file Not on file Obstetrics History Para Term AB IAB SAB Ectopic Multiple Livin g Live Births 2 2 2 0 0 0 0 0 0 2 2 Date Outcome GA Total Labor Labor/2nd/3rd Weight Sex Type Anes PTL Bozena A1 A5 Name Clin Term Term Last Filed Vital Signs Vital Sign Reading [...] Mass Index 33.98 04/05/2025 1:08 PM CDT Plan of Treatment Health Maintenance Due Date Last Done Comments Covid-19 Vaccine (2024- 6 season) 2025 04/26/2021, 09/10/2020, 08/02/2020 Lipid Panel 08/11/2025 08/11/2024, 07/0 10/2022, 12/13/2019, Additional history exists Hemoglobin A1C 09/28/2025 03/30/2025, 031 12/2024, 08/11/2024, Additional history exists Dilated Eye Exam 11/04/2025 11/04/2024 Albumin Creatinine Ratio, Urine 03/30/2026 03/30/2025, 09/05/2024, 08/11/2024, Additional history exists eGFR 03/30/2026 03/30/2025, 1002/2025, 09/05/2024, Additional history exists Depression Screening 04/05/2026 04/05/2025, 02/10/2024, 12/25/2022, Additional history exists Fall Risk Assessment 04/05/2026 04/05/2025, 06/09/2024, 02/10/2024, Additional history exists Foot Exam 04/05/2026 04/05/2025, 08/16/2024 Well Visit 65+ 04/05/2026 04/05/2025, 01/21, 12/25/2022, Additional history exists DTaP/Tdap/Td Vaccine (3 - Td or Tdap) 06/22/2026 06/22/2016, 05/21/2011 Osteoporosis Screening-Bone Density Scan 10/19/2026 10/19/2024, 01/10/2019 Hepatitis C Screening Completed 02/01/2019, 019 Zoster Vaccine Completed 02/08/2019, 08/2018, 11/19/2007 Colon Cancer Screening-CT Colonography Discontinued 12/26/2020 Colon Cancer Screening-Colonoscopy Discontinued 12/26/2020 Colon Cancer Screening-DNA Stool Discontinued 12/27/19 Colon Cancer Screening-FIT Discontinued 12/26/2020 Colon Cancer Screening-FOBT Discontinued 12/26/2020 Colon Cancer Screening-Sigmoidoscopy Discontinued 12/26/2020 Colorectal Cancer Screening Discontinued Pneumococcal vaccine 65+ Completed 023, 05/22/2015, 03/11/2013 Hepatitis B Screening Completed 02/18/2024 Breast Cancer Screening-Mammogram Discontinued 04/05/2025, 02/10/2024, 12/25/2022, Additional history exists Influenza Vaccine Completed 04/05/2025, , 03/27/2023, Additional history exists Medical Devices Implanted Type Area Senior Supplier Quality Engineer Device Identifier Shelf Expiration Date Model / Serial / Lot [employer] 1217-25-500 [place] 6.5mm 25mm Acetabular Cancellous Screw Bone Sterile - [id number] Implanted:Qty: 1 on 12/15/2018 by Billy Ward MD at [facility] Left: Hip [id number] 10/19/2028 1217-25-500 / / [id number] [id number] [place] 52mm Sector Hip Shell Acetabular Gription Sterile Latex Free - [id number] Implanted:Qty: 1 on 12/15/2018 by Billy Ward MD at [facility] Left: Hip [employer] 10/19/2028 [id number] / / [id number] [employer] [id number] [place] 52mm 36mm Hip 10d +4mm Liner Acetabular Altrx Sterile Latex Free - Sn/A - [id number] Implanted:Qty: 1 on 12/15/2018 by Billy Ward MD at [facility] Left: Hip [employer] 11/19/2022 [id number] / N/A / [id number] [employer] [id number] Actis Collared Hip 12/14 4 Standard Offset Stem Femoral - [id number] Implanted:Qty: 1 on 12/15/2018 by Billy Ward MD at [facility] Left: Hip [employer] 10/19/2028 [id number] / / [id number] [employer] [id number] Articul/Mike 36mm Cementless Hip +5mm 12/14 [place] Femoral Latex Free - [id number] Implanted:Qty: 1 on 12/15/2018 by Billy Ward MD at [facility] Left: Hip [employer] 09/20/2023 [id number] / / [id number] Procedures Procedure Name Priority Date/Time Associated Diagnosis Comments VITAMIN D 25 HYDROXY Routine 04/28/2025 2:59 PM RESIDENTIAL LIVING ASSISTANT Vitamin D deficiency SCREENING MAMMOGRAM BILATERAL W JAY JAY Schedule Routine, Read Routine (OP Routine) 04/05/2025 11:40 AM CDT Screening mammogram for breast cancer EGFR Routine 03/30/2025 10:53 AM CDT COMPREHENSIVE METABOLIC PANEL Routine 03/30/2025 10:53 AM CDT ANTI-DOUBLE STRANDED DNA ANTIBODIES Routine 03/30/2025 10:53 AM CDT C3 COMPLEMENT Routine 03/30/2025 10:53 AM CDT C4 COMPLEMENT Routine 03/30/2025 10:53 AM CDT CRP (ACUTE PHASE) Routine 03/30/2025 10: 53 AM CDT ERYTHROCYTE SEDIMENTATION RATE Routine 03/30/2025 10:53 AM CDT EGFR Routine 03/30/2025 10:50 AM CDT 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, without long-term current use of insulin DIFFERENTIAL AUTO Routine 03/30/2025 10: 50 AM CDT Iron deficiency anemia due to chronic blood loss ALBUMIN CREATININE RATIO, URINE Routine 03/30/2025 10:50 AM CDT 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, without long-term current use of insulin COMPREHENSIVE METABOLIC PANEL Routine 03/30/2025 10:50 AM CDT 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, without long-term current use of insulin HEMOGLOBIN A1C Routine 03/30/2025 10:50 AM CDT 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, without long-term current use of insulin CHOLESTEROL, LDL, DIRECT Routine 03/30/2025 10:50 AM CDT 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, without long-term current use of insulin IRON PROFILE W/ IBC Routine 03/30/2025 1 0:50 AM CDT Iron deficiency anemia due to chronic blood loss CBC WITH AUTO DIFFERENTIAL Routine 03/30/2025 10:50 AM CDT Iron deficiency anemia due to chronic blood loss HM DIABETES EYE EXAM Routine 11/04/2024 11:17 AM CDT DEXA AXIAL SKELETON BONE DENSITY 1 OR MORE SITES Schedule Routine, Read Routine (OP Routine) 10/19/2024 1:05 PM CDT History of bilateral hip replacements LIPID PANEL Routine 08/11/2024 1:18 PM RESIDENTIAL LIVING ASSISTANT 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, without long-term current use of insulin (HCC) Class 1 obesity with serious comorbidity and body mass index (BMI) of 33.0 to 33.9 in adult, unspecified obesity type Medication monitoring encounter COLONOSCOPY 12/26/2020 12:53 PM CDT HEPATITIS C ANTIBODY Routine 02/01/2019 10:55 AM CDT Encounter for hepatitis C screening test for low risk patient from Last 3 Months or Most Recently Relevant to Health Maintenance Results * Vitamin D 25 hydroxy (04/28/2025 2:59 PM RESIDENTIAL LIVING ASSISTANT) Vitamin D 25-OH 59 30 - 80 ng/mL Comment:Testing performed by : [facility], [address] [place] [address]., [address] Blood 04/28/2025 2:59 PM RESIDENTIAL LIVING ASSISTANT 04/28/2025 7:56 PM RESIDENTIAL LIVING ASSISTANT us Emily Blair MD LAB BLOOD ORDERABLES Final Result Performing Organization Address City/State/[facility] Co de Phone Number JUDITH [facility] [place] 1 [facility] Department [place] [address] * Screening Mammogram Bilateral W Jay Jay (04/05/2025 11:40 AM CDT) Anatomical Region Laterality Modality Breast Bilateral Mammography Impressions 04/05/2025 10:21 PM CDT Bilateral No evidence of malignancy in either breast. OVERALL BI-RADS FINAL ASSESSMENT: 1 - Negative RECOMMENDATION: Recommend bilateral annual screening mammography. Narrative 04/05/2025 10:21 PM CDT EXAMINATION: Screening Mammogram Bilateral W Jay Jay: 04/05/2025 COMPARISON: Relevant prior studies available at the time of interpretation were reviewed, including the most recent mammogram on: 02/10/2024. TECHNIQUE: Mammography was performed with 2D and 3D digital breast tomosynthesis (DBT) images. CAD was utilized. BREAST PARENCHYMAL COMPOSITION: The breasts are almost entirely fatty. FINDINGS: Bilateral There is no suspicious mass, calcification, or architectural distortion in either breast. us Emily Blair MD IMG MAMMO PROCEDURES Final Result * Anti-double stranded DNA abs (03/30/2025 10:53 AM CDT) dsDNA Ab <1.0 <=4.0 IUnits/mL Comment: Interpretive Data Negative: < or = 4 IUnits/mL Indeterminate: 5 - 9 IUnits/mL Positive: > or = 10 IUnits/mL Current interpretive data was last revised on 2016. Testing performed by: [facility], [address] [place] [address]., [id number] Blood 03/30/2025 10:5 3 AM CDT 03/31/2025 10:31 AM CDT Janell Barney ASSISTANT CORPORATE CONTROLLER LAB BLOOD ORDERABLES Final Re sult REJIKVO MSY ([place] 1 [facility] Department [place] [address] * eGFR (03/30/2025 10:53 AM CDT) eGFR 61 >=60 mL/min/1. 73 m2 Comment: Interpretive Data Reference Interval Normal >/= 90 mL/min/1.73m2 Mildly decreased* 60 - 89 mL/min/1.73m2 Mildly to moderately decreased 45 - 59 mL/min/1.73m2 Moderately to severely decreased 30 - 44 mL/min/1.73m2 Severely decreased 15 - 29 mL/min/1.73m2 Kidney Failure < 15 mL/min/1.73m2 *Relative to young adult level Estimated glomerular filtration rate is determined by the 2020 CKD-EPI equation recommended by the National Kidney Foundation (A Unifying Approach to GFR Estimation: Recommendations of the NKF-ASK Task Force on Reassessing the Inclusion of Race in Diagnosing Kidney Disease, JASN 2020). The CKD-EPI equation should not be used for patients with unstable renal function and has not been validated in children and those over 70. Current interpretive data was last reviewed 2021. Testing performed by: [facility], [address] [place] [address], [id number] Blood 03/30/2025 10:5 3 AM CDT 03/30/2025 5:50 PM CDT Janell Bayfroy ASSISTANT CORPORATE CONTROLLER LAB BLOOD ORDERABLES Final Re sult Performing Organization Address City/[facility]/ZIP Co de Phone Number JUDITH BANERJEE ([place]) 1 [facility] [employer] [place] [address] * C4 complement (03/30/2025 10:53 AM CDT) Complement C4 21 10 - 40 mg/dL Comment:Testing performed by : [facility], [address] [place] [address], [address] Blood 03/30/2025 10:5 3 AM CDT 03/30/2025 10:53 AM CDT Janell Savita MIRELES LAB BLOOD ORDERABLES Final Re sult Performing Organization Address [facility] Co de Phone Number JUDITH BANERJEE ([place]) 1 [facility] [employer] [place] [address] * Erythrocyte sedimentation rate (03/30/2025 10:53 AM CDT) Erythrocyte sedimentation rate 9 1 - 30 mm/hr Comment:Testing performed by : [address] [address] Blood 03/30/2025 10:5 3 AM CDT 03/30/2025 10:53 AM CDT Janell Bayfroy ASSISTANT CORPORATE CONTROLLER LAB BLOOD ORDERABLES Final Re sult Performing Organization Address City/[facility] Co de Phone Number JUDITH BANERJEE ([place]) 1 [facility] [place] [address] * C3 complement (03/30/2025 10:53 AM CDT) [facility] Complement C3 138 90 - 180 mg/dL Comment:Testing performed by : [facility], [address] [place] [address], [address] Blood 03/30/2025 10:5 3 AM CDT 03/30/2025 10:53 AM CDT Janell Barney ASSISTANT CORPORATE CONTROLLER LAB BLOOD ORDERABLES Final Re sult Performing Organization Address [facility] Co de Phone Number JUDITH BANERJEE ([place]) 1 [facility] Department [place] [address] * CRP (acute phase) (03/30/2025 10:53 AM CDT) [facility] CRP 4.7 <=10.0 mg/L Comment:Testing performed by : [facility], [address] [place] [address], [address] Blood 03/30/2025 10:5 3 AM CDT 03/30/2025 10:53 AM CDT Janell Barney ASSISTANT CORPORATE CONTROLLER LAB BLOOD ORDERABLES Final Re sult Performing Organization Address [facility] de Phone Number JUDITH BANERJEE ([place]) 1 [place] [address] * (ABNORMAL) Comprehensive metabolic panel (03/30/2025 10:53 AM CDT) [facility] Sodium 131(L) 135 - 145 mmol/L Comment:Testing performed by : [address] [address] Potassium, pl 4.2 3.3 - 4.9 mmol/L [facility] ([place]) Comment:Testing performed by : [address] [address] Chloride 92(L) 97 - 110 mmol/L [facility] ([place]) Comment:Testing performed by : [address], [address] CO2 25 22 - 32 mmol/L [facility] ([place]) Comment:Testing performed by : [address] [address] Anion gap 14 2 - 15 mmol/L [facility] ([place]) Comment:Testing performed by : [address] [address] BUN 20 6 - 25 mg/dL [facility] ([place]) Comment:Testing performed by : [address] [address] Creatinine 0.96 0.60 - 1.10 mg/dL [facility] ([place]) Comment:Testing performed by : [facility], [address] [place] [address]., [address] Glucose 88 70 - 199 mg/dL [facility] ([place]) Comment: Interpretive Data Fasting glucose >/= 126 mg/dl is diagnostic for diabetes. Fasting is defined as no caloric intake for at least 8 hours. Fasting glucose between 100 mg/dl to 125 mg/dl is diagnostic of prediabetes. In a patient with classic symptoms of hyperglycemia or hyperglycemic crisis, a random glucose >/= 200 mg/dl is diagnostic for diabetes. In the absence of unequivocal hyperglycemia, results should be confirmed by repeat testing. The classification and Diagnosis of Diabetes Diabetes Care 2021; 46: S19-S40. Current interpretive data was last revised 2022. Testing performed by: [facility], [address] [place] [address]., [address] Calcium 9.5 8.5 - 10.3 mg/dL [facility] ([place]) Comment:Testing performed by : [address] [address] Bilirubin, total 0.5 0.1 - 1.2 mg/dL [facility] ([place]) Comment:Testing performed by : [address] [address] Protein, pl 7.3 6.5 - 8.5 g/dL [facility] ([place]) Comment:Testing performed by : [address] [address] Albumin 4.0 3.5 - 5.0 g/dL [facility] ([place]) Comment:Testing performed by : [facility], [address], [place]., [address] Alk phos 114 40 - 130 Units/L [facility] ([place]) Comment:Testing performed by : [facility], [address] [place] [address]., [address] ALT 28 7 - 45 Units/L [facility] ([place]) Comment:Testing performed by : [facility], [address] [place] [address]., [address] AST 44 10 - 45 Units/L [facility] ([place]) Comment:Testing performed by : [facility], [address] [place] [address]., [address] Blood 03/30/2025 10:5 3 AM CDT 03/30/2025 10:53 AM CDT Janell Barney NP LAB BLOOD ORDERABLES Final Re sult [facility] ([place]) 1 [facility] Department [place] [address] * eGFR (03/30/2025 10:50 AM CDT) eGFR 60 >=60 mL/min/1. 73 m2 Comment: Interpretive Data Reference Interval Normal >/= 90 mL/min/1.73m2 Mildly decreased* 60 - 89 mL/min/1.73m2 Mildly to moderately decreased 45 - 59 mL/min/1.73m2 Moderately to severely decreased 30 - 44 mL/min/1.73m2 Severely decreased 15 - 29 mL/min/1.73m2 Kidney Failure < 15 mL/min/1.73m2 *Relative to young adult level Estimated glomerular filtration rate is determined by the 2020 CKD-EPI equation recommended by the National Kidney Foundation (A Unifying Approach to GFR Estimation: Recommendations of the NKF-ASK Task Force on Reassessing the Inclusion of Race in Diagnosing Kidney Disease, JASN 2021). The CKD-EPI equation should not be used for patients with unstable renal function and has not been validated in children and those over 70. Current interpretive data was last reviewed 2021. Testing performed by: [facility], [address] [place] [address]., [address] Blood 03/30/2025 10:5 0 AM CDT 03/30/2025 5:53 PM CDT us Emily Blair MD LAB BLOOD ORDERABLES Final Result JUDITH CHRISS ([place]) 1 [facility] Department [place] [address] * (ABNORMAL) Differential, auto (03/30/2025 10:50 AM CDT) Neutrophil abs 4.37 1.50 - 6.50 K/cumm Comment:Testing performed by : [facility], [address] [place] [address]., [address] Imm gran abs 0.02 0.00 - 0.10 K/cumm [facility] ([place]) Comment:Testing performed by : [facility], [address] [place] [address]., [address] Lymphocyte abs 0.74(L) 0.80 - 3.30 K/cumm [facility] ([place]) Comment:Testing performed by : [facility], [address] [place] [address], [address] Monocyte abs 0.56 0.20 - 0.80 K/cumm [facility] ([place]) Comment:Testing performed by : [facility], [address] [place] [address]., [address] Eosinophil abs 0.12 0.00 - 0.50 K/cumm [facility] ([place]) Comment:Testing performed by : [address] [address] Basophil abs 0.05 0.00 - 0.10 K/cumm [facility] ([place]) Comment:Testing performed by : [address] [address] Neutrophil pct 74.6 % [facility]NE R [facility] ([place]) Comment: Interpretive Data Percent cell count reference ranges are not reported, since discordance with absolute values may lead to misinterpretation of CBC data. Current Interpretive Data was last revised on 2017. Testing performed by: [address], [address] Imm gran pct 0.3 % [facility] ([place]) Comment: Interpretive Data Percent cell count reference ranges are not reported, since discordance with absolute values may lead to misinterpretation of CBC data. Current Interpretive Data was last revised on 2017. Testing performed by: [facility], [address] [place] [address]., [address] Lymphocyte pct 12.6 % [facility] ([place]) Comment: Interpretive Data Percent cell count reference ranges are not reported, since discordance with absolute values may lead to misinterpretation of CBC data. Current Interpretive Data was last revised on 2017. Testing performed by: [facility], [address] [place] [address]., [address] Monocyte pct 9.6 % [facility] ([place]) Comment: Interpretive Data Percent cell count reference ranges are not reported, since discordance with absolute values may lead to misinterpretation of CBC data. Current Interpretive Data was last revised on 2017. Testing performed by: [facility], [address] [place] [address]., [address] Eosinophil pct 2.0 % [facility] ([place]) Comment: Interpretive Data Percent cell count reference ranges are not reported, since discordance with absolute values may lead to misinterpretation of CBC data. Current Interpretive Data was last revised on 2017. Testing performed by: [address] [address] Basophil pct 0.9 % [facility] ([place]) Comment: Interpretive Data Percent cell count reference ranges are not reported, since discordance with absolute values may lead to misinterpretation of CBC data. Current Interpretive Data was last revised on 2017. Testing performed by: [address] [address] Blood 03/30/2025 10:5 0 AM CDT 03/30/2025 5:43 PM CDT Eimly Blair MD LAB BLOOD ORDERABLES Final Result JUDITH CHRISS ([place]) 1 [facility] Department [place] [address] * Iron profile w/ IBC (03/30/2025 10:50 AM CDT) [facility] Iron 61 35 - 145 mcg/dl Comment:Testing performed by : [facility], [address] [place] [address]., [address] TIBC 299 250 - 400 mcg/dL [facility] ([place]) Comment:Testing performed by : [facility], [address] [place] [address], [address] Transferrin saturation 20 20 - 50 % [facility] ([place]) Comment:Testing performed by : [facility], [address] [place] [address], [address] Blood 03/30/2025 10:5 0 AM CDT 03/30/2025 5:43 PM CDT Emily Blair MD LAB BLOOD ORDERABLES Final Result REJINER [facility] ([place]) 1 [facility] Department [place] [address] * (ABNORMAL) CBC with auto differential (03/30/2025 10:50 AM CDT) [facility] WBC 5.86 3.80 - 9.90 K/cumm Comment:Testing performed by : [facility], [address] [place] [address], [address] Hgb 13.1 11.9 - 15.5 g/dL [facility] ([place]) Comment:Testing performed by : [address], [address] Hct 40.9 35.6 - 45.5 % [facility] ([place]) Comment:Testing performed by : [facility], [address] [place] [address], [address] Plt 303 150 - 400 K/cumm [facility] ([place]) Comment:Testing performed by : [address], [address] MPV 9.9 9.1 - 12.3 fL [facility] ([place]) Comment:Testing performed by : [address], [address] RBC 4.62 3.90 - 5.20 M/cumm [facility] ([place]) Comment:Testing performed by : [address] [place] [address] MCV 88.5 81.3 - 96.4 fL [facility] ([place]) Comment:Testing performed by : [facility], [address] [place] [address], [address] MCH 28.4 27.1 - 33.3 pg [facility] ([place]) Comment:Testing performed by : [facility], [address] [place] [address], [address] MCHC 32.0(L) 32.3 - 35.7 g/dL [facility] ([place]) Comment:Testing performed by : [facility], [address] [place] [address], [address] RDW CV 13.5 11.1 - 14.9 % [facility] ([place]) Comment:Testing performed by : [address], [address] RDW SD 43.7 35.7 - 48.1 fL [facility] ([place]) Comment:Testing performed by : [address], [address] NRBC abs 0.00 0.00 - 0.01 K/cumm [facility] ([place]) Comment:Testing performed by : [address], [address] Blood 03/30/2025 10:5 0 AM CDT 03/30/2025 5:43 PM CDT us Emily Blair MD LAB BLOOD ORDERABLES Final Result JUDITH BANERJEE ([place]) 1 [facility] Department [place] [address] * Albumin Creatinine Ratio, Urine (03/30/2025 10:50 AM CDT) Albumin Ur 49.9 mg/L Comment: Interpretive Data No reference range established. Current interpretive data was last revised 2018. Testing performed by: [address], [address] Creatinine Ur 172.8 mg/dL [facility] ([place]) Comment: Interpretive Data No reference range established. Current interpretive data was last revised 2018. Testing performed by: [facility], [address] [place] [address]., [address] Albumin Creatinine Ratio, Ur 29 1 - 29 mg/g JUDITH CHRISS ([place]) Comment:Testing performed by : [facility], [address] [place] [address]., [address] Urine 03/30/2025 10:5 0 AM CDT 03/30/2025 5:43 PM CDT us Emily Blair MD LAB URINE ORDERABLES Final Result JUDITH BANERJEE ([place]) [address] [place] [address] [place] [address] * Cholesterol, LDL, direct (03/30/2025 10:50 AM CDT) LDL Cholesterol, Direct 60 <=129 mg/dL Comment: Interpretive Data Ages < or = 19 years Acceptable: <110 mg/dL Borderline high: 110-129 mg/dL High: >or= 130 mg/dL Ages > or = 20 years Optimal: <100 mg/dL Near optimal: 100-129 mg/dL Borderline high: 130-159 mg/dL High: >160 mg/dL Literature References: 1. Expert Panel on Integrated Guidelines for Cardiovascular Health and Risk Reduction in Children and Adolescents. Pediatrics 2011;128:S213 2. NCEP Expert Panel. Circulation 2004;110:227 Current Interpretive Data was last revised on 2018. Testing performed by: [facility], [address] [place] [address]., [address] Blood 03/30/2025 10:5 0 AM CDT 03/30/2025 5:43 PM CDT us Emily Blair MD LAB BLOOD ORDERABLES Final Result JUDITH BANERJEE ([place]) 1 [facility] Department [place] [address] * Hemoglobin A1c (03/30/2025 10:50 AM CDT) [facility] Hgb A1C 5.2 4.0 - 5.6 % Comment:Testing performed by : [address] [address] Estimated Average Glucose 103 mg/dL JUDITH BANERJEE ([place]) Comment: The ADA recommends reporting an estimated Average Glucose (eAG) with all Hemoglobin A1c results using the equation derived from a study of 507 normal and diabetic adults. Minority populations were underrepresented and children were not included. (Diabetes Care 31:5067-8228, 2008). The eAG is not equivalent to a fasting glucose. Testing performed by: [facility], [address] [place] [address]., [address] Blood 03/30/2025 10:5 0 AM CDT 03/30/2025 5:43 PM CDT Emily Blair MD LAB BLOOD ORDERABLES Final Result JUDITH BANERJEE ([place]) 1 [facility] Department [place] [address] * (ABNORMAL) Comprehensive metabolic panel (03/30/2025 10:50 AM CDT) [facility] Sodium 131(L) 135 - 145 mmol/L Comment:Testing performed by : [facility], [address] [place] [address]., [address] Potassium, pl 4.3 3.3 - 4.9 mmol/L JUDITH BANERJEE ([place]) Comment:Testing performed by : [address] [address] Chloride 92(L) 97 - 110 mmol/L JUDITH BANERJEE ([place]) Comment:Testing performed by : [address] [address] CO2 26 22 - 32 mmol/L JUDITH BANERJEE ([place]) Comment:Testing performed by : [address] [address] Anion gap 13 2 - 15 mmol/L JUDITH BANERJEE ([place]) Comment:Testing performed by : [address], [address] BUN 20 6 - 25 mg/dL [facility] ([place]) Comment:Testing performed by : [address], [address] Creatinine 0.97 0.60 - 1.10 mg/dL [facility] ([place]) Comment:Testing performed by : [address], [address] Glucose 88 70 - 199 mg/dL [facility] ([place]) Comment: Interpretive Data Fasting glucose >/= 126 mg/dl is diagnostic for diabetes. Fasting is defined as no caloric intake for at least 8 hours. Fasting glucose between 100 mg/dl to 125 mg/dl is diagnostic of prediabetes. In a patient with classic symptoms of hyperglycemia or hyperglycemic crisis, a random glucose >/= 200 mg/dl is diagnostic for diabetes. In the absence of unequivocal hyperglycemia, results should be confirmed by repeat testing. The classification and Diagnosis of Diabetes Diabetes Care 2021; 46: S19-S40. Current interpretive data was last revised 2022. Testing performed by: [address], [address] Calcium 9.5 8.5 - 10.3 mg/dL [facility] ([place]) Comment:Testing performed by : [address], [address] Bilirubin, total 0.5 0.1 - 1.2 mg/dL [facility] ([place]) Comment:Testing performed by : [address], [address] Protein, pl 7.1 6.5 - 8.5 g/dL [facility] ([place]) Comment:Testing performed by : [address], [address] Albumin 4.0 3.5 - 5.0 g/dL [facility] ([place]) Comment:Testing performed by : [address], [address] Alk phos 113 40 - 130 Units/L [facility] ([place]) Comment:Testing performed by : [address], [address] ALT 28 7 - 45 Units/L [facility] ([place]) Comment:Testing performed by : [address], [address] AST 38 10 - 45 Units/L JUDITH BANERJEE ([place]) Comment:Testing performed by : [facility], [address] [facility], [place]., [address] Blood 03/30/2025 10:5 0 AM CDT 03/30/2025 5:43 PM CDT Emily Blair MD LAB BLOOD ORDERABLES Final Result JUDITH BANERJEE ([place]) 1 [facility] Department [place] [address] * DIABETES EYE EXAM (11/04/2024 11:17 AM CDT) SCRIBED DIABETIC DILATED EYE EXAM Normal Historical Provider HEALTH MAINTENANCE Final Result * Dexa Axial Skeleton Bone Density 1 or 2 Site (10/19/2024 1:05 PM CDT) Anatomical Region Laterality Modality Body N/A Other 10/19/2024 7:04 PM CDT Addenda Addendum by Rojelio Huang MD on 12/30/2024 8:29 PM CDT ADDENDUM: This addendum report supersedes the original report dated 10/19/2024. Dissimilar scan types or analysis methods precludes assessment for calculating a significant change. END OF ADDENDUM REPORT THIS IS AN ELECTRONICALLY VERIFIED FINAL REPORT 12/30/2024 8:29 PM Addendum Electronically signed by Rojelio Huang M.D. 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 CLINICAL INFORMATION: Current height: 62 inches Maximum height: 62 inches Weight: 185 pounds Risk factors: Postmenopausal, adult fracture, rheumatoid arthritis COMPARISON: 01/10/2019 FINDINGS: AP LUMBAR SPINE L1-L4: Total BMD is 1.058 g/cm2 T-score is 0.1 LEFT forearm: 33% radius BMD is 0.548 g/cm2 T-score is -2.4 FRAX: FRAX tool cannot be utilized as T-Score for mandatory regions required to calculate FRAX is unavailable. IMPRESSION: Low Bone Mass. REFERENCE: Bone mineral density: T-Score: Normal (T-score above or = -1.0) Low bone mass (T-score between -1.0 and -2.5) replaces the previously used term osteopenia Osteoporosis (T-score = or below -2.5) Z-Score: Within the expected range for age (Z-score above -2.0) Below the expected range for age (Z-score is -2.0 or below) Please see below follow up recommendations. Medical evaluation for secondary causes of low bone mineral density may be appropriate. FRAX is a World Health Organization validated fracture risk assessment tool that calculates a person's 10 year probability of a major osteoporosis related fracture and hip fracture. According to the National Osteoporosis Foundation guidelines, postmenopausal women and men age 50 or older with low bone mass and a 10 year probability of a major osteoporosis related fracture = or greater than 20% or a 10 year probability of a hip fracture = or greater than 3% should be considered for pharmacological treatment for the prevention of osteoporosis. For further information, including treatment recommendations, please refer to the 2019 ISCD Official Positions (http://www.iscd.org) and the NOF's Clinician's Guide to Prevention and Treatment of Osteoporosis (http://www.nof.org/professionals/clinical-guidelines) THIS IS AN ELECTRONICALLY VERIFIED FINAL REPORT 10/19/2024 7:10 PM - Electronically signed by Rojelio Huang M.D. MF: ROCK Report ID: [id number] Reading Location: [id number] Procedure Note Rojelio Huang MD - 10/19/2024 EXAM DESCRIPTION: DEXA AXIAL SKELETON BONE DENSITY 1 OR MORE SITES REASON FOR STUDY: 79 y/o year old F with given history of: history ofhip replacement she wants you to know about so we do need to have lumbar spineand wrist Routine - bilateral hip replacements - performed forearm Senior Supplier Quality Engineer/Model: [employer] SL (S/N [id number]) Facility LSC value of 0.022 for the AP spine, 0.027 for the femur, and0.023 for the forearm. CLINICAL INFORMATION: Current height: 62 inches Maximum height: 62 inches Weight: 185 pounds Risk factors: Postmenopausal, adult fracture, rheumatoid arthritis COMPARISON: 01/10/2019 FINDINGS: AP LUMBAR SPINE L1-L4: Total BMD is 1.058 g/cm2 T-score is 0.1 LEFT forearm: 33% radius BMD is 0.548 g/cm2 T-score is -2.4 FRAX: FRAX tool cannot be utilized as T-Score for mandatory regions required to calculate FRAX is unavailable. IMPRESSION: Low Bone Mass. REFERENCE: Bone mineral density: T-Score: Normal (T-score above or = -1.0) Low bone mass (T-score between -1.0 and -2.5) replaces thepreviously used term osteopenia Osteoporosis (T-score = or below -2.5) Z-Score: Within the expected range for age (Z-score above -2.0) Below the expected range for age (Z-score is -2.0 or below) Please see below follow up recommendations. Medical evaluation forsecondary causes of low bone mineral density may be appropriate. FRAX is a World Health Organization validated fracture risk assessmenttool that calculates a person's 10 year probability of a major osteoporosisrelated fracture and hip fracture. According to the National OsteoporosisFoundation guidelines, postmenopausal women and men age 50 or older with low bonemass and a 10 year probability of a major osteoporosis related fracture = or greater than 20% or a 10 year probability of a hip fracture = or greaterthan 3% should be considered for pharmacological treatment for the preventionof osteoporosis. For further information, including treatment recommendations, please referto the 2019 ISCD Official Positions (http://www.iscd.org) and the NOF's Clinician's Guide to Prevention and Treatment of Osteoporosis (http://www.nof.org/professionals/clinical-guidelines) THIS IS AN ELECTRONICALLY VERIFIED FINAL REPORT 10/19/2024 7:10 PM - Electronically signed by Rojelio Huang M.D. MF: ROCK Report ID: [id number] Reading Location: [place] [address] us Emily Blair MD IMG DXA PROCEDURES Edited Result - Final * Lipid panel (08/11/2024 1:18 PM RESIDENTIAL LIVING ASSISTANT) Cholesterol 156 30 - 199 mg/dL Comment: Interpretive Data Ages < or = 19 years Acceptable: <170 mg/dL Borderline high: 170-199 mg/dL High: >or= 200 mg/dL Ages > or = 20 years Desirable: <200 mg/dL Borderline high: 200-239 mg/dL High: >or= 240 mg/dL Literature References: 1. Expert Panel on Integrated Guidelines for Cardiovascular Health and Risk Reduction in Children and Adolescents. Pediatrics 2011;128:S213 2. NCEP Expert Panel. Circulation 2004;110:227 Current Interpretive Data was last revised on 2018. Testing performed by: [facility], [address] [place] [address]., [address] Triglycerides 73 <=149 mg/dL JUDITH BANERJEE ([place]) Comment: Interpretive Data Ages < or = 9 years Acceptable: <75 mg/dL Borderline high: 75-99 mg/dL High: >or= 100 mg/dL Ages 10 to 20 years Acceptable: <90 mg/dL Borderline high: 90-129 mg/dL High: >or= 130 mg/dL Ages > or = 20 years Desirable: <150 mg/dL Borderline high: 150-199 mg/dL High: 200-499 mg/dL Very high: >or= 499 mg/dL Literature References: 1. Expert Panel on Integrated Guidelines for Cardiovascular Health and Risk Reduction in Children and Adolescents. Pediatrics 2011;128:S213 2. NCEP Expert Panel. Circulation 2004;110:227 Current Interpretive Data was last revised on 2018. Testing performed by: [facility], [address] [place] [address]., [address] HDL 81 >=40 mg/dL JUDITH Osborne ([place]) Comment: Interpretive Data Ages < or = 19 years Acceptable: >45 mg/dL Borderline low: 40-45 mg/dL Low: <40 mg/dL Ages > or = 20 years Desirable: >or= 60 mg/dL Low: <40 mg/dL Literature References: 1. Expert Panel on Integrated Guidelines for Cardiovascular Health and Risk Reduction in Children and Adolescents. Pediatrics 2011;128:S213 2. NCEP Expert Panel. Circulation 2004;110:227 Current Interpretive Data was last revised on 2018. Testing performed by: [address] [address] LDL, calculated 61 <=129 mg/dL JUDITH BANERJEE ([place]) Comment: Interpretive Data Ages < or = 19 years Acceptable: <110 mg/dL Borderline high: 110-129 mg/dL High: >or= 130 mg/dL Ages > or = 20 years Optimal: <100 mg/dL Near optimal: 100-129 mg/dL Borderline high: 130-159 mg/dL High: >160 mg/dL Calculated using the Patrick LDL-C estimating equation. This equation was implemented on 2024. Prior to this date LDL-C was estimated using the Friedewald equation. Literature References: 1. Expert Panel on Integrated Guidelines for Cardiovascular Health and Risk Reduction in Children and Adolescents. Pediatrics 2011;128:S213 2. NCEP Expert Panel. Circulation 2004;110:227 3. Patrick Branch et al. NOEMY Cardiol. 2020 October 20;5(5):540-548. doi: 10.1001/jamacardio.2020.0013 Current Interpretive Data was last revised on 2024. Testing performed by: [facility], [address] [place] [address]., [address] Non-HDL Cholesterol 75 mg/dL JUDITH BANERJEE ([place]) Comment: Interpretive Data Ages < or = 19 years Acceptable: <120 mg/dL Borderline high: 120-144 mg/dL High: >145 mg/dL Ages > or = 20 years When triglycerides are >200 mg/dL, Non-HDL cholesterol is a secondary target of therapy with treatment goals that are 30 mg/dL greater than the LDL cholesterol target. Literature References: 1. Expert Panel on Integrated Guidelines for Cardiovascular Health and Risk Reduction in Children and Adolescents. Pediatrics 2011;128:S213 2. NCEP Expert Panel. Circulation 2004;110:227 Current Interpretive Data was last revised on 2018. Testing performed by: [facility], [address] [place] [address]., [address] Chol/HDL ratio 2 JOBY BANERJEE ([place]) Comment:Testing performed by : [facility], [address] [place] [address]., [address] Blood 08/11/2024 1:18 PM RESIDENTIAL LIVING ASSISTANT 08/11/2024 5:34 PM RESIDENTIAL LIVING ASSISTANT Emily Blair MD LAB BLOOD ORDERABLES Final Result JUDITH CHRISS ([place]) 1 [facility] Department [place] [address] * COLONOSCOPY (12/26/2020 12:53 PM CDT) Anatomical Region Laterality Modality Other Narrative Procedure Note Antwon Castaneda MD - 12/26/2020 12:53 PM CDT [facility] Patient Name: Cynthia Royal Procedure Date: 12/26/2020 12:53 PM Date of : 1945 Admit Type: Outpatient Age: 75 Gender: Female Note Status: Finalized Attending MD: Antwon Castaneda M.D. Procedure Date: 12/26/2020 Procedure: Colonoscopy Indications: Rectal bleeding, Chronic diarrhea Providers: Antwon Castaneda M.D., Odilia Serrano MARKETING DATABASE CONSULTANT (Anesthesia Staff), Lois Holman RN, Ernesto, Auto Radiator Mechanic Referring MD: Emily Blair M.D. Medicines: Monitored Anesthesia Care Complications: No immediate complications. Estimated Blood Loss: Estimated blood loss: none. Procedure: Pre-Anesthesia Assessment: - Airway Examination: normal oropharyngeal airwayand neck mobility. - Respiratory Examination: clear to auscultation. - ASA Grade Assessment: III - A patient with severe systemic disease. - ASA Grade Assessment: III - A patient with severe systemic disease. - The risks and benefits of the procedure and the sedation options and risks were discussed with the patient. All questions were answered and informed consent was obtained. After I obtained informed consent, the scope was passed under direct vision. Throughout theprocedure, the patient's blood pressure, pulse, and oxygen saturations were monitored continuously. The scopewas passed under direct vision. The Colonoscope was introduced through the anus and advanced to the the cecum, identified by the appendiceal orifice, ileocecal valve and palpation. The colonoscopy was performed with ease. The patient tolerated the procedure well. The quality of the bowelpreparation was fair. The bowel preparation used was SUPREP via split dose instruction. Bowel prep was administered using a split dose. Findings: Skin tags were found on perianal exam. The colon (entire examined portion) appeared normal. Biopsies for histology were taken with a cold forceps from the entire colon for evaluation of microscopic colitis. Estimated blood loss: none. A few small-mouthed diverticula were found in the sigmoid colon. A few medium-mouthed diverticula were found in the sigmoid colon. Internal hemorrhoids were found during retroflexion. The hemorrhoids were mild. Impression: - Preparation of the colon was fair. - Perianal skin tags found on perianal exam. - The entire examined colon is normal. Biopsied. - Diverticulosis in the sigmoid colon. - Diverticulosis in the sigmoid colon. Recommendation: - Discharge patient to home (ambulatory). - Await pathology results. - Repeat colonoscopy in 10 years for screening purposes. Procedure Code(s): --- Professional --- 62618, Colonoscopy, flexible; with biopsy, singleor multiple Diagnosis Code(s): --- Professional --- K64.4, Residual hemorrhoidal skin tags K62.5, Hemorrhage of anus and rectum K52.9, Noninfective gastroenteritis and colitis, unspecified K57.30, Diverticulosis of large intestine without perforation or abscess without bleeding CPT copyright 2019 [employer]. All rights reserved. The codes documented in this report are preliminary and upon gaming pit boss reviewmay be revised to meet current compliance requirements. Electronically signed by Antwon Castaneda MD Antwon Castaneda M.D. 12/26/2020 1:26:50 PM Number of Addenda: 0 Note Initiated On: 12/26/2020 12:53 PM Antwon Castaneda MD ENDOSCOPY PROCEDURES Final Resul t * Hepatitis C antibody (02/01/2019 10:55 AM CDT) Hep C Ab Negative Negative JUDITH TOBIAS Blood specimen (specimen) 02/01/2019 10:55 AM CDT 02/01/2019 5:24 PM CDT Emily Blair MD LAB MICROBIOLOGY - GENERAL ORDERABLES Final Result JUDITH TOBIAS [address] [address] Department [place] [address] from Last 3 Months or Most Recently Relevant to Health Maintenance Insurance [facility] [id number] [facility] OPEN ACCESS [employer] OPEN ACCESS [facility] [id number] Advance Directives For more information, please contact: [phone] Documents on File Type Date Recorded 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 Retail 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 Specialist Expl anation ADVANCE DIRECTIVE 12/06/2019 DNR ADVANCE DIRECTIVE 01/27/2010 * Full Code (Latest Code Status on File) Date Activated Date Inactivated Comments 06/09/2024 12:24 PM 06/09/2024 6:42 PM * Full Code Date Activated Date Inactivated Comments 06/09/2024 12:24 PM 06/09/2024 12:24 PM * Full Code Date Activated Date Inactivated Comments 12/15/2018 1:27 PM 12/17/2018 6:14 PM Care Teams Sharemilker Relationship Specialty Start Date End Date Emily Blair MD PCP - General 09/19/16 Billy Ward MD Surgeon Orthopedic Surgery 01/06/17 Hugo Chavez OD [address] [place] [address] Optometry 07/17/17 Sahil Yuan MD [address] [place] [address] Consulting Physician Urology 01/18/18 [place] [address] [facility] [address] [place] [address] Consulting Physician Rheumatology 03/22/21 Edgard Ray MD [address] [address] Referring Physician Obstetrics and Gynecology 03/22/21 Osito Garcia MD [address] [place] [address] [address] [place] [address] Consulting Physician Gastroenterology 08/10/23 Aye Bond MD [address] [place] [address] [address] [place] [address] Consulting Physician Sleep Medicine 04/05/25
--- OUTSIDE RECORDS SUMMARY | 2025-04-29 15:34 | XMS_ITS | Encounter Summary ---
Author Organization [facility] Address [address] [place] [address] Phone Care Team Providers Care Video Tape Editor Name Role Phone Emily Blair MD Primary Care Provider [phone] Rich Zepeda MD Unavailable [phone] Billy Ward MD Unavailable Eyal Mcclendon MD Unavailable [phone] Hugo Chavez OD Unavailable Sahil Yuan MD Unavailable Antwon Castaneda MD Unavailable Vivi Chaidez MD Unavailable Edgard Ray MD Unavailable Osito Garcia MD Unavailable [phone] Aye Bond MD Unavailable Encounter Details Date Type Department Care Team (Late st Contact Info) Description 08/14/2017 Orders Only [facility] [address] [place] [address] Emily Blair MD [address] [place] [address] Social History Tobacco Use Types Packs/Day Years Used Date Smoking Tobacco: Never Smokeless Tobacco: Never Alcohol Use Standard Drinks/Week Comments No 0 (1 standard drink = 0.6 oz pur e alcohol) Comments No Sex and Gender Information Value Date Recorded Sex Assigned at Not on file Legal Sex Female 11:46 AM MEMBERSHIP 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 Gender Identity Not on file Sexual Orientation Not on file Occupation Industry Job Start Date Job End Date retired Not on file Not on file Not on file documented as of this encounter Plan of Treatment Not on file documented as of this encounter Procedures Procedure Name Priority Date/Time Associated Diagnosis Comments PULMONARY - RESULT SCAN 08/14/2017 8:33 AM MEMBERSHIP 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 documented in this encounter Results * PULMONARY - RESULT SCAN (08/14/2017 8:33 AM MEMBERSHIP 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) Anatomical Region Laterality Modality Other Emily Blair MD Final Resu lt documented in this encounter Visit Diagnoses Not on filedocumented in this encounter Additional Health Concerns Infection Onset Date Last Indicated Resolved Time COVID: Suspected 02/15/2020 02/15/2020 02/16/2020 7:50 PM CDT COVID19 02/15/2020 02/15/2020 02/29/2020 3:07 AM CDT COVID: Recovered Comment:Added based on recent COVID infection. 02/29/2020 02/29/2020 06/28/2020 3:[address] COVID: Suspected 04/12/2021 04/12/2021 04/12/2021 2:39 PM CDT COVID: Suspected 12/17/2021 12/17/2021 12/17/2021 2:25 PM CDT COVID: Suspected 02/12/2022 02/12/2022 02/12/2022 1:48 PM CDT COVID: Suspected 02/12/2022 02/12/2022 02/13/2022 3:05 AM CDT COVID: Suspected 02/12/2022 02/12/2022 02/13/2022 5:20 AM CDT COVID: Suspected 02/14/2022 02/14/2022 02/15/2022 3:05 AM CDT COVID: Suspected 07/02/2023 07/02/202307/02/2023 3:26 PM MEMBERSHIP 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 documented as of this encounter Care Teams Video Tape Editor Relationship Specialty Start Date End Date Emily Blair MD PCP - General 09/19/16 Rich Zepeda MD Cardiovascular Disease 01/06/17 5 Billy Ward MD Surgeon Orthopedic Surgery 01/06/17 Eyal Mcclendon MD [address] [place] [address] Gastroenterology 01/06/17 12/11/20 Hugo Chavez OD [address] [place] [address] Optometry 07/17/17 Sahil Yuan MD [address] [place], [place] [address] Consulting Physician Urology 01/18/18 Antwon Castaneda MD [address] [place], [place] [id number] Consulting Physician Gastroenterology 12/12/20 08/19/24 [place] [address] [facility] [address] [place] [address] Consulting Physician Rheumatology 03/22/21 Edgard Ray MD [address] [facility] [address] [place] [address] Referring Physician Obstetrics and Gynecology 03/22/21 Osito Garcia MD [address] [place] [address] [place] [address] Consulting Physician Gastroenterology 08/10/23 Aye Bond MD [address] [place] [address] [place] [address] Consulting Physician Sleep Medicine 04/05/25 documented as of this encounter
--- OUTSIDE RECORDS SUMMARY | 2025-04-29 15:34 | XMS_ITS | Encounter Summary ---
Author Organization [facility] Address [address] [place] [address] Phone Care Team Providers Care Waterproof Bag Sewer Name Role Phone Emily Blair MD Primary Care Provider [phone] Rich Zepeda MD Unavailable [phone] Billy Ward MD Unavailable Eyal Mcclendon MD Unavailable Hugo Chavez OD Unavailable Sahil Yuan MD Unavailable [phone] Antwon Castaneda MD Unavailable Vivi Chaidez MD Unavailable Edgard Ray MD Unavailable Osito Garcia MD Unavailable [phone] Aye Bond MD Unavailable Encounter Details Date Type Department Care Team (Late st Contact Info) Description 08/05/2017 Orders Only [facility] [address] [place] [address] Emily Blair MD [address] [place] [address] Social History Tobacco Use Types Packs/Day Years Used Date Smoking Tobacco: Never Smokeless Tobacco: Never Alcohol Use Standard Drinks/Week Comments No 0 (1 standard drink = 0.6 oz pur e alcohol) Comments No Sex and Gender Information Value Date Recorded Sex Assigned at Not on file Legal Sex Female 11:46 AM FIELD MANAGER Gender Identity Not on file Sexual Orientation Not on file Occupation Industry Job Start Date Job End Date retired Not on file Not on file Not on file documented as of this encounter Plan of Treatment Not on file documented as of this encounter Procedures Procedure Name Priority Date/Time Associated Diagnosis Comments SCAN - LABS 08/05/2017 3:26 PM FIELD MANAGER documented in this encounter Results * SCAN - LABS (08/05/2017 3:26 PM FIELD MANAGER) Emily Blair MD Final Resu lt documented [...] 02/15/2022 3:05 AM CDT COVID: Suspected 07/02/2023 07/02/2023 07/02/2023 3:26 PM FIELD MANAGER documented as of this encounter Care Teams Waterproof Bag Sewer Relationship Specialty Start Date End Date Emily Blair MD PCP - General 09/19/16 Rich Zepeda MD Cardiovascular Disease 01/06/17 5 Billy Ward MD Surgeon Orthopedic Surgery 01/06/17 Eyal Mcclendon MD [address] [place] [address] Gastroenterology 01/06/17 12/11/20 Hugo Chavez OD [address] [place], [place] [address] Optometry 07/17/17 Sahil Yuan MD [address] [place] [address] Consulting Physician Urology 01/18/18 Antwon Castaneda MD [address] [place], [place] [address] Consulting Physician Gastroenterology 12/12/20 08/19/24 [place] [address] [facility] [address] [place] [address] Consulting Physician Rheumatology 03/22/21 Edgard Ray MD [address] [facility] [address] [place], [place] [address] Referring Physician Obstetrics and Gynecology 03/22/21 Osito Garcia MD [address] [place] [address] [place] [address] Consulting Physician Gastroenterology 08/10/23 Aye Bond MD [address] [place] [address] [place] [address] Consulting Physician Sleep Medicine 04/05/25 documented as of this encounter
--- OUTSIDE RECORDS SUMMARY | 2025-04-29 15:34 | XMS_ITS | Clinical Summary ---
Author Organization [facility] Address [address] [place] [address] Care Team Providers Care Perfusionist Name Role Phone Sonya Blair MD Primary Care Provider [phone] Source Comments [facility],non-owned Affiliates and Associated Physician Practices is amultiple site organization consisting of ambulatory clinics and hospital sitesin [place], [place], [place] and [place]. This disclosure is being madepursuant to the Care Everywhere program and may not contain all information available regarding this patient. Last updated 18.[facility] Allergies Active Allergy Reactions Criticality Noted Date Comments Cephalexin Other Low Other reaction(s): Vomiting Reaction: NAUSEA, VOMITING, , Reaction: nausea & vomiting, , Latex Other,Rash High Other reaction(s): Blisters Reaction: RASH, , Reaction: irritated skin, blisters, Propoxyphene Dizziness Low Reaction: dizziness, Medications * Be aware that medications may not be up to date on this document. Alwaysverify current medications with the patient. Aspirin (ASPIR-81 PO) 81 mg 12/04/2015 Active Melatonin ER 1 MG TBCR Active fluticasone propionate (FLONASE) 50 MCG/ACT nasal spray Active metoprolol tartrate (LOPRESSOR) 25 MG tablet Active Immunizations Immunization Administration Dates Next Due INFLUENZA VACCINE, HIGH-DOSE , QUADR. (FLUZONE HIGH-DOSE QUADRIVALENT; 65Y+), 0.7 ML (HD-IIV4) 04/07/2018,04/08/2016 Social History Tobacco Use Types Packs/Day Years Used Date Smoking Tobacco: Never Assessed Comments Unknown Sex and Gender Information Value Date Recorded Sex Assigned at Not on file Legal Sex Female 10:04 AM CDT Gender Identity Not on file Sexual Orientation Not on file Last Filed Vital Signs Vital Sign Reading Time Taken Comments Blood Pressure 128/84 05/13/2017 9:24 AM FITNESS CLUB MANAGER Pulse 83 05/13/2017 9:24 AM FITNESS CLUB MANAGER Temperature 36.5 C (97.7 F) 05/13/2017 9:24 AM FITNESS CLUB MANAGER Respiratory Rate - - Oxygen Saturation 98% 05/13/2017 9:24 AM FITNESS CLUB MANAGER Inhaled Oxygen Concentration - - Weight 94.8 kg (209 lb) 05/13/2017 9:24 AM FITNESS CLUB MANAGER Height 160 cm (5' 3) 05/13/2017 9:24 AM FITNESS CLUB MANAGER Body Mass Index 37.02 05/13/2017 9:24 AM FITNESS CLUB MANAGER Plan of Treatment Health Maintenance Due Date Last Done Comments BONE DENSITY TESTING 1945 HEPATITIS C SCREENING 03/30/1965 DTAP/TDAP/TD VACCINES (1 - Tdap) 1966 PNEUMOCOCCAL VACCINE 50+ (1 of 1 - PCV) 1997 ZOSTER VACCINE (1 of 2) 1997 SCREENING FOR DIABETES 05/13/2017 Respiratory Syncytial Virus (RSV) Vaccine Pt: or over 60 yrs (1 - 1-dose 75+ series) 2022 DEPRESSION SCREENING 06/22/2024 COVID-19 VACCINE ( - 2023- season) 2025 INFLUENZA VACCINE (#1) 2025 8, 04/24/2017, 04/08/2016, Additional history exists HEPATITIS B VACCINE Aged Out No longe r eligible based on patient's age to complete this topic HIB VACCINE Aged Out No longer eligi ble based on patient's age to complete this topic HPV VACCINE Aged Out No longer eligi ble based on patient's age to complete this topic MENINGOCOCCAL (Group B) VACCINE SHARED DECISION-MAKING Aged Out No longer eligible based on patient's age to complete this topic MENINGOCOCCAL GROUPS A/C/Y/W VACCINE Aged Out No longer eligible based on patient's age to complete this topic Insurance [employer] Care Teams Perfusionist Relationship Specialty Start Date End Date Sonya Blair MD [address] [place] [id number] PCP - General Internal Medicine 04/08/16
--- OUTSIDE RECORDS SUMMARY | 2025-04-29 15:34 | XMS_ITS | Encounter Summary ---
Author Organization [facility] Address [address] [place] [address] Phone Care Team Providers Care Route Agent Name Role Phone Emily Blair MD Primary Care Provider [phone] Rich Zepeda MD Unavailable [phone] Billy Ward MD Unavailable Eyal Mcclendon MD Unavailable [phone] Hugo Chavez OD Unavailable Sahil Yuan MD Unavailable [phone] Antwon Castaneda MD Unavailable Vivi Chaidez MD Unavailable Edgard Ray MD Unavailable Osito Garcia MD Unavailable [phone] Aye Bond MD Unavailable Encounter Details Date Type Department Care Team (Late st Contact Info) Description 05/26/2017 Orders Only [facility] [address] [place] [address] Emily Blair MD [address] [place] [address] Social History Tobacco Use Types Packs/Day Years Used Date Smoking Tobacco: Never Smokeless Tobacco: Never Alcohol Use Standard Drinks/Week Comments No 0 (1 standard drink = 0.6 oz pur e alcohol) Comments Unknown Sex and Gender Information Value Date Recorded Sex Assigned at Not on file Legal Sex Female 11:46 AM DIRECTOR OF PHARMACY Gender Identity Not on file Sexual Orientation Not on file documented as of this encounter Functional Status * BP Location Answer Date of Assessment Author Left arm 05/28/2017 11:42 AM DIRECTOR OF PHARMACY Everton Krishna MA * BP Location Answer Date of Assessment Author Left arm 05/28/2017 11:42 AM DIRECTOR OF PHARMACY Everton Krishna MA documented as of this encounter Plan of Treatment Not on file documented as of this encounter Procedures Procedure Name Priority Date/Time Associated Diagnosis Comments SCAN - RADIOLOGY/IMAGING 05/26/2017 9:54 AM DIRECTOR OF PHARMACY documented in this encounter Results * SCAN - RADIOLOGY/IMAGING (05/26/2017 9:54 AM DIRECTOR OF PHARMACY) Anatomical Region Laterality Modality Other Emily Blair [...] COVID: Suspected 07/02/2023 07/02/2023 07/02/2023 3:26 PM DIRECTOR OF PHARMACY documented as of this encounter Care Teams Route Agent Relationship Specialty Start Date End Date Emily Blair MD PCP - General 09/19/16 Rich Zepeda MD Cardiovascular Disease 01/06/17 5 Billy Ward MD Surgeon Orthopedic Surgery 01/06/17 Eyal Mcclendon MD [address] [place] [address] Gastroenterology 01/06/17 12/11/20 Hugo Chavez OD [address] [place], [place] [address] Optometry 07/17/17 Sahil Yuan MD [address] [place], [place] [address] Consulting Physician Urology 01/18/18 Antwon Castaneda MD [address] [place] [address] Consulting Physician Gastroenterology 12/12/20 08/19/24 [place] [address] [address] Consulting Physician Rheumatology 03/22/21 Edgard Ray MD [address] [facility] [address] [place], [place] [address] Referring Physician Obstetrics and Gynecology 03/22/21 Osito Garcia MD [address] [place] [address] [place] [address] Consulting Physician Gastroenterology 08/10/23 Aye Bond MD [address] [place] [address] [address] [place] [address] Consulting Physician Sleep Medicine 04/05/25 documented as of this encounter
--- OUTSIDE RECORDS SUMMARY | 2025-04-29 15:34 | XMS_ITS | Clinical Summary ---
Author Organization [facility] Address [address] [place] [address] Phone Care Team Providers Care Pipe Layer Name Role Phone Emily Blair MD Primary Care Provider Allergies Active Allergy Reactions Criticality Noted Date Comments Propoxyphene Diarrhea,Nausea,Vomiting Cephalexin Diarrhea,Nausea,Vomiting Latex Hives 11/09/2017 Medications esomeprazole (NEXIUM) 40 MG PO CAP-DEL-REL Take 40 mg by mouth 2 times daily. 30-60 ' AC breakfast Active fluticasone 50 MCG/ACT NA SUSP 2 Sprays by Nasal route daily. Use in each nostril as directed. Active Azelastine HCl (ASTEPRO) 0.15 % NA SOLN 2 Puffs by Nasal route 2 times daily as needed. Nasal congestion, post nasal drainage, runny nose or sneezing Active sertraline (ZOLOFT) 100 MG PO TABS Take by mouth. Activ e metoprolol tartrate 25 MG PO TABS Take by mouth. Activ e aspirin EC 81 MG PO TBEC Take by mouth. Acti ve simvastatin (ZOCOR) 20 MG PO TABS Take by mouth. Activ e Melatonin 1 MG PO TABS Take by mouth. Activ e OMEPRAZOLE PO Take by mouth. A ctive polyethylene glycol (GLYCOLAX, MIRALAX) Pack Take 1 Packet by mouth daily. Dissolve in 4-8 oz of liquid. 30 Packet 8 Active Active Problems No known active problems Social History Tobacco Use Types Packs/Day Years Used Date Smoking Tobacco: Never Smokeless Tobacco: Never Alcohol Use Standard Drinks/Week Comments Yes 0 (1 standard drink = 0.6 oz pur e alcohol) SOCIALLY Comments No Sex and Gender Information Value Date Recorded Sex Assigned at Not on file Legal Sex Female 8:00 PM CDT Gender Identity Not on file Sexual Orientation Not on file Last Filed Vital Signs Vital Sign Reading Time Taken Comments Blood Pressure 137/58 03/29/2018 7:15 PM CDT Pulse 55 03/29/2018 7:15 PM CDT Temperature 36.7 C (98 F) 03/29/2018 6:13 PM CDT Respiratory Rate 16 03/29/2018 6:13 PM CDT Oxygen Saturation 99% 03/29/2018 7:15 PM CDT Inhaled Oxygen Concentration - - Weight 82.6 kg (182 lb) 03/29/2018 6:13 PM CDT Height 157.5 cm (5' 2) 03/29/2018 6:13 PM CDT Body Mass Index 33.29 03/29/2018 6:13 PM CDT Plan of Treatment Health Maintenance Due Date Last Done Comments Hepatitis C Virus (HCV) Screening 1945 TdaP Immunization 1945 Pneumococcal Immunization (5 0+ years) (1 of 1 - PCV) 1997 Zoster Immunization (1 of 2) 1997 Respiratory Syncytial Virus (RSV) Immunization (Adult) (1 - 1-dose 75+ series) 2022 Influenza Immunization (#1) 02/20/202507/2016, 04/09/2015 SARS-COV-2 Immunization ( season) 2025 04/26/2021, 09/10/2020, 08/02/2020 Hepatitis B Immunization Aged Out No longer eligible based on patient's age to complete this topic Human Papillomavirus (HPV) Immunization Aged Out No longer eligible b ased on patient's age to complete this topic Meningococcal Immunization (ACWY) Aged Out No longer eligible b ased on patient's age to complete this topic Rotavirus Immunization Aged Out No lo nger eligible based on patient's age to complete this topic Insurance [facility] Care Teams Pipe Layer Relationship Specialty Start Date End Date Emily Blair MD [address] [facility] [place] [address] PCP - General Internal Medicine 11/09/17
--- OUTSIDE RECORDS SUMMARY | 2025-04-29 15:34 | XMS_ITS | Encounter Summary ---
Author Organization [facility] Address [address] [place] [address] Phone Care Team Providers Care Security Operations Manager Name Role Phone Emily Blair MD Primary Care Provider [phone] Rich Zepeda MD Unavailable [phone] Billy Ward MD Unavailable Eyal Mcclendon MD Unavailable Hugo Chavez OD Unavailable Sahil Yuan MD Unavailable Antwon Castaneda MD Unavailable Vivi Chaidez MD Unavailable Edgard Ray MD Unavailable Osito Garcia MD Unavailable [phone] Aye Bond MD Unavailable Encounter Details Date Type Department Care Team (Late st Contact Info) Description 08/10/2017 Orders Only [facility] [address] [place] [address] Emily Blair MD [address] [place] [address] Social History Tobacco Use Types Packs/Day Years Used Date Smoking Tobacco: Never Smokeless Tobacco: Never Alcohol Use Standard Drinks/Week Comments No 0 (1 standard drink = 0.6 oz pur e alcohol) Comments No Sex and Gender Information Value Date Recorded Sex Assigned at Not on file Legal Sex Female 11:46 AM AIRCRAFT PNEUDRAULICS REPAIRER Gender Identity Not on file Sexual Orientation Not on file Occupation Industry Job Start Date Job End Date retired Not on file Not on file Not on file documented as of this encounter Plan of Treatment Not on file documented as of this encounter Procedures Procedure Name Priority Date/Time Associated Diagnosis Comments SCAN - RADIOLOGY/IMAGING 08/10/2017 11:33 AM AIRCRAFT PNEUDRAULICS REPAIRER documented in this encounter Results * SCAN - RADIOLOGY/IMAGING (08/10/2017 11:33 AM AIRCRAFT PNEUDRAULICS REPAIRER) Anatomical Region Laterality Modality Other us Emily Blair MD Final Resu lt documented in this encounter Visit Diagnoses Not on filedocumented in this encounter Additional Health Concerns Infection Onset Date Last Indicated Resolved Time COVID: Suspected 02/15/2020 02/15/2020 02/16/2020 7:50 PM CDT COVID19 02/15/2020 02/15/2020 02/29/2020 3:0 7 AM CDT COVID: Recovered Comment:Added based on [...] COVID: Suspected 07/02/2023 07/02/2023 07/02/2023 3:26 PM AIRCRAFT PNEUDRAULICS REPAIRER documented as of this encounter Care Teams Security Operations Manager Relationship Specialty Start Date End Date Emily Blair MD PCP - General 09/19/16 Rich Zepeda MD Cardiovascular Disease 01/06/17 5 Billy Ward MD Surgeon Orthopedic Surgery 01/06/17 Eyal Mcclendon MD [address] [place] [address] Gastroenterology 01/06/17 12/11/20 Hugo Chavez OD [address] [place] [address] Optometry 07/17/17 Sahil Yuan MD [address] [place] [address] Consulting Physician Urology 01/18/18 Antwon Castaneda MD [address] [place] [address] Consulting Physician Gastroenterology 12/12/20 08/19/24 [place] [address] [facility] [address] [place] [address] Consulting Physician Rheumatology 03/22/21 Edgard Ray MD [address] [facility] [address] [place], [place] [address] Referring Physician Obstetrics and Gynecology 03/22/21 Osito Garcia MD [address] [facility] [place] [address] Consulting Physician Gastroenterology 08/10/23 Aye Bond MD [address] [place] [address] [place] [address] Consulting Physician Sleep Medicine 04/05/25 documented as of this encounter
--- OUTSIDE RECORDS SUMMARY | 2025-04-29 15:34 | XMS_ITS | Encounter Summary ---
Author Organization [facility] Address [address] [place] [address] Care Team Providers Care Sap Security Consultant Name Role Phone Emily Blair MD Primary Care Provider + [phone] Billy Ward MD Unavailable [phone] Hugo Chavez OD Unavailable Sahil Yuan MD Unavailable [phone] Vivi Chaidez MD Unavailable Edgard Ray MD Unavailable [phone] Osito Garcia MD Unavailable [phone] Aye Bond MD Unavailable Encounter Details Date Type Department Care Team (Late st Contact Info) Description 01/10/2025 Orders Only [facility] [place] Information Management [address] [place] [address] Scanning, Provider Social History Tobacco Use Types Packs/Day Years [...] on file Legal Sex Female 11:46 AM TALKBACK HOST Gender Identity Not on file Sexual Orientation Not on file Occupation Industry Job Start Date Job End Date retired Not on file Not on file Not on file documented as of this encounter Plan of Treatment Not on file documented as of this encounter Procedures Procedure Name Priority Date/Time Associated Diagnosis Comments SCAN - LABS 01/10/2025 documented in this encounter Results * SCAN - LABS (01/10/2025) Provider Scanning Final Result documented in this encounter Visit Diagnoses Not on filedocumented in this encounter Care Teams Sap Security Consultant Relationship Specialty Start Date End Date Emily Blair MD PCP - General 09/19/16 Billy Ward MD Surgeon Orthopedic Surgery 01/06/17 Hugo Chavez, GAUDENCIO [address] [place] [address] Optometry 07/17/17 Sahil Yuan MD [address] [place] [address] Consulting Physician Urology 01/18/18 [place] [address] [address] Consulting Physician Rheumatology 03/22/21 Edgard Ray MD [address] [facility] [address] [facility] [address] [place], [place] [address] Referring Physician Obstetrics and Gynecology 03/22/21 Osito Garcia MD [address] [place] [address] [address] [place] [address] Consulting Physician Gastroenterology 08/10/23 Aye Bond MD [address] [place] [address] [address] [place] [address] Consulting Physician Sleep Medicine 04/05/25 documented as of this encounter
--- OUTSIDE RECORDS SUMMARY | 2025-04-29 15:34 | XMS_ITS | Encounter Summary ---
Author Organization [facility] Address [address] [place] [address] Phone Care Team Providers Care Tower Attendant Name Role Phone Emily Blair MD Primary Care Provider + [phone] Rich Zepeda MD Unavailable [phone] Billy Ward MD Unavailable [phone] Eyal Mcclendon MD Unavailable Hugo Chavez OD Unavailable Sahil Yuan MD Unavailable Antwon Castaneda MD Unavailable Vivi Chaidez MD Unavailable Edgard Ray MD Unavailable [phone] Osito Garcia MD Unavailable [phone] Aye Bond MD Unavailable Encounter Details Date Type Department Care Team (Late st Contact Info) Description 06/12/2020 Orders Only [facility] [address] [place] [address] Scanning, Provider Social History Tobacco Use Types Packs/Day Years Used Date Smoking Tobacco: Never Smokeless Tobacco: Never Alcohol Use Standard Drinks/Week Comments No 0 (1 standard drink = 0.6 oz pur e alcohol) PHQ-2 Answer Date Recorded PHQ-2 Total Score (If total score is 3 or more points, staff should administer the PHQ-9) 0 12/06/2019 Comments No Sex and Gender Information Value Date Recorded Sex Assigned at Not on file Legal Sex Female 11:46 AM PLATE COLORER Gender Identity Not on file Sexual Orientation Not on file Occupation Industry Job Start Date Job End Date retired Not on file Not on file Not on file documented as of this encounter Functional Status * BP Location Answer Date of Assessment Author Left arm 06/12/2020 1:36 PM PLATE COLORER Kavon Mo MA * BP Location Answer Date of Assessment Author Left arm 06/12/2020 1:36 PM Kavon Lewis MA documented as of this encounter Plan of Treatment Not on file documented as of this encounter Procedures Procedure Name Priority Date/Time Associated Diagnosis Comments SCAN - LABS 06/12/2020 documented in this encounter Results * SCAN - LABS (06/12/2020) us Provider Scanning Final Result documented in this encounter Visit Diagnoses Not on filedocumented in this encounter Additional Health Concerns Infection Onset Date Last Indicated Resolved Time COVID: Recovered Comment:Added based on recent COVID [...] COVID: Suspected 07/02/2023 07/02/2023 07/02/2023 3:26 PM PLATE COLORER documented as of this encounter Care Teams Tower Attendant Relationship Specialty Start Date End Date Emily Blair MD PCP - General 09/19/16 Rich Zepeda MD Cardiovascular Disease 01/06/17 Billy Ward MD Surgeon Orthopedic Surgery 01/06/17 Eyal Mcclendon MD [address] [place] [address] Gastroenterology 01/06/17 12/11/20 Hugo Chavez, GAUDENCIO [address] [place], [place] [address] Optometry 07/17/17 Sahil Yuan MD [address] [place] [address] Consulting Physician Urology 01/18/18 Antwon Castaneda MD [address] [place] [address] Consulting Physician Gastroenterology 12/12/20 08/19/24 [place] [address] [facility] [address] [place] [address] Consulting Physician Rheumatology 03/22/21 Edgard Ray MD [address] [facility] 301 [place] [address] Referring Physician Obstetrics and Gynecology 03/22/21 Osito Garcia MD [address] [facility] [place] [address] Consulting Physician Gastroenterology 08/10/23 Aye Bond MD [address] [place] [address] [place] [address] Consulting Physician Sleep Medicine 04/05/25 documented as of this encounter
--- OUTSIDE RECORDS SUMMARY | 2025-04-29 15:34 | XMS_ITS | Encounter Summary ---
Author Organization [facility] Address [address] [place] [address] Phone Care Team Providers Care Registered Pharmacy Technician Name Role Phone Emily Blair MD Primary Care Provider + [phone] Rich Zepeda MD Unavailable [phone] Billy Ward MD Unavailable Hugo Chavez OD Unavailable [phone] Sahil Yuan MD Unavailable Antwon Castaneda MD Unavailable Vivi Chaidez MD Unavailable Edgard Ray MD Unavailable [phone] Osito Garcia MD Unavailable [phone] Aye Bond MD Unavailable Encounter Details Date Type Department Care Team (Late st Contact Info) Description 02/25/2022 Orders Only [facility] [address] [place] [address] Scanning, Provider Social History Tobacco Use Types Packs/Day Years Used Date Smoking Tobacco: Never Smokeless Tobacco: Never Alcohol Use Standard Drinks/Week Comments No 0 (1 standard drink = 0.6 oz pur e alcohol) AUDIT-C Answer Date Recorded Q1: How often do you have a drink containing alc ohol? Never 05/22/2021 Average Number of Drinks Not on file 021 Frequency of Binge Drinking Not on file 06/2020 PHQ-2 Answer Date Recorded PHQ-2 Total Score (If total score is 3 or more points, staff should administer the PHQ-9) 0 12/17/2021 Comments No Sex and Gender Information Value Date Recorded Sex Assigned at Not on file Legal Sex Female 11:46 AM COOK CHIEF Gender Identity Not on file Sexual Orientation Not on file Occupation Industry Job Start Date Job End Date retired Not on file Not on file Not on file documented as of this encounter Plan of Treatment Not on file documented as of this encounter Procedures Procedure Name Priority Date/Time Associated Diagnosis Comments CARDIOLOGY DOCUMENT SCAN 02/25/2022 documented in this encounter Results * CARDIOLOGY DOCUMENT SCAN (02/25/2022) Anatomical Region Laterality Modality Other Provider Scanning CV CARDIAC SERVICES PROCEDURES Final Result documented in this encounter Visit Diagnoses Not on filedocumented in this encounter Additional Health Concerns Infection Onset Date Last Indicated Resolved Time COVID: Suspected 07/02/2023 07/02/2023 07/02/2023 3:26 PM COOK CHIEF documented as of this encounter Care Teams Registered Pharmacy Technician Relationship Specialty Start Date End Date Emily Blair MD PCP - General 09/19/16 Rich Zepeda MD Cardiovascular Disease 01/06/17 5 Billy Ward MD Surgeon Orthopedic Surgery 01/06/17 Hugo Chavez OD [address] [place] [address] Optometry 07/17/17 Sahil Yuan MD [address] [place] [address] Consulting Physician Urology 01/18/18 Antwon Castaneda MD [address] [place] [address] Consulting Physician Gastroenterology 12/12/20 08/19/24 [place] [address] [facility] [address] [place] [address] Consulting Physician Rheumatology 03/22/21 Edgard Ray MD [address] [facility] [address] [place], [place] [address] Referring Physician Obstetrics and Gynecology 03/22/21 Osito Garcia MD [address] [place] [address] [address] [place] [address] Consulting Physician Gastroenterology 08/10/23 Aye Bond MD [address] [place] [address] [address] [place], [place] [address], [place] [address] Consulting Physician Sleep Medicine 04/05/25 documented as of this encounter
--- OUTSIDE RECORDS SUMMARY | 2025-04-29 15:34 | XMS_ITS | Encounter Summary ---
Author Organization [facility] Address [address] [place] [address] Phone Care Team Providers Care Corporate Quality Assurance Manager Name Role Phone Emily Blair MD Primary Care Provider + [phone] Rich Zepeda MD Unavailable [phone] Billy Ward MD Unavailable [phone] Eyal Mcclendon MD Unavailable [phone] Hugo Chavez OD Unavailable Sahil Yuan MD Unavailable [phone] Antwon Castaneda MD Unavailable Vivi Chaidez MD Unavailable Edgard Ray MD Unavailable [phone] Osito Garcia MD Unavailable [phone] Aye Bond MD Unavailable Encounter Details Date Type Department Care Team (Late st Contact Info) Description 01/03/2020 Orders Only [facility] [address] [place] [address] Scanning, Provider Social History Tobacco [...] on file Legal Sex Female 11:46 AM IMPLEMENTATION SERVICES ANALYST Gender Identity Not on file Sexual Orientation Not on file Occupation Industry Job Start Date Job End Date retired Not on file Not on file Not on file documented as of this encounter Plan of Treatment Not on file documented as of this encounter Procedures Procedure Name Priority Date/Time Associated Diagnosis Comments CARDIOLOGY DOCUMENT SCAN 01/03/2020 documented in this encounter Results * SCAN - CARDIOLOGY (01/03/2020) Anatomical Region Laterality Modality Other us Provider Scanning CV CARDIAC SERVICES PROCEDURES Final [...] COVID: Suspected 07/02/2023 07/02/2023 07/02/2023 3:26 PM IMPLEMENTATION SERVICES ANALYST documented as of this encounter Care Teams Corporate Quality Assurance Manager Relationship Specialty Start Date End Date Emily Blair MD PCP - General 09/19/16 Rich Zepeda MD Cardiovascular Disease 01/06/17 5 Billy Ward MD Surgeon Orthopedic Surgery 01/06/17 Eyal Mcclendon MD [address] [place] [id number] Gastroenterology 01/06/17 12/11/20 Hugo Chavez OD [address] [place], [place] [id number] Optometry 07/17/17 Sahil Yuan MD [address] [place] [address] Consulting Physician Urology 01/18/18 Antwon Castaneda MD [address] [place] [address] Consulting Physician Gastroenterology 12/12/20 08/19/24 [place] [address] [facility] [address] [place] [address] Consulting Physician Rheumatology 03/22/21 Edgard Ray MD [address] [facility] [address] [facility] [address] [place] [address] Referring Physician Obstetrics and Gynecology 03/22/21 Osito Garcia MD [address] [place] [address] [place] [address] Consulting Physician Gastroenterology 08/10/23 Aye Bond MD [address] [place] [address] [place] [address] Consulting Physician Sleep Medicine 04/05/25 documented as of this encounter
== END 2025-04-29 16:05 | disposition home or self-care (01) ==
PROVIDERS: Emergency Provider Nurse Practitioner Family; PCP Internal Medicine Geriatric Medicine
DX: S00.81XA Abrasion of other part of head, initial encounter (principal); W18.30XA Fall on same level, unspecified, initial encounter; G89.29 Other chronic pain; M54.2 Cervicalgia; I10 Essential (primary) hypertension; E78.00 Pure hypercholesterolemia, unspecified
CPT/HCPCS: 99202; G0463